=== PATIENT | female | born 1985 | race Caucasian/White ===

== ENCOUNTER 2020-03-30 10:59 | Outpatient (CLI) | payer OTHER, SELFPAY ==
--- NOTE | ~2020-03-30 | US_ITS ---
EXAMINATION: US pelvic complete w TV DATE: 03/30/2020 11:41 INDICATION: Pelvic pain for 2 years Comparison:No prior studies for comparison. TECHNIQUE: Multiple transabdominal and endovaginal sonographic images of the pelvis performed. FINDINGS: The uterus measures 8.4 x 5.2 x 5.3 cm. There is an IUD in the lower uterine segment/cervix . The endometrial complex measures 6 mm. The right ovary measures 2.6 x 2.2 x 1.8 cm and the left ovary measures 2.7 x 2.1 x 2.2 cm. There ar e small follicles in each ovary. There is no free fluid in the pelvis. There are no abnormal masses seen on either side. IMPRESSION: 1. IUD in the lower uterine segment/cervix. Reviewed, dictated and finalized at location A.
== END 2020-03-30 11:00 | disposition home or self-care (01) ==
PROVIDERS: Visit Provider Obstetrics & Gynecology
DX: R10.2 Pelvic and perineal pain (principal); Z97.5 Presence of (intrauterine) contraceptive device
CPT/HCPCS: 76830; 76856

== ENCOUNTER 2020-04-20 15:56 | Outpatient (CLI) | payer OTHER, SELFPAY ==
[2020-04-20 16:38] LABS: Hematocrit 40.2 % (37.0-47.0); Hemoglobin 13.4 g/dL (12.0-15.0); Mean Corpuscular HGB Conc 33.3 g/dl (32-36); Mean Corpuscular Volume 93.1 fl (80-100); Mean Platelet Volume 10.2 fl (7.4-10.4); Platelet Count Result 400 k/mm3 (150-375); Red Blood Count 4.32 M/mm3 (4.2-5.4); Red Cell Distribution Width 13.3 % (11.5-14.5); White Blood Count 11.9 K/mm3 (4.5-10.0)
[2020-04-20 17:22] LABS: Blood Urea Nitrogen 14 mg/dL (7-17); Carbon Dioxide 23 mmol/L (22-30); Chloride 107 mmol/L (98-107); Cholesterol 203 mg/dL (0-200); Estimated Glomerular Filt Rate > 60; Glucose 90 mg/dL (65-105); HDL Direct 33 mg/dL; Potassium 3.9 mmol/L (3.4-5.0); Sodium 139 mmol/L (137-145); Triglycerides 293 mg/dL (<150)
[2020-04-20 17:33] LABS: LDL Cholesterol Direct 135 mg/dL
[2020-04-20 17:35] LABS: Vitamin D 25 Hydroxy 22.5 ng/mL
== END 2020-04-20 15:57 | disposition home or self-care (01) ==
PROVIDERS: PCP Family Medicine; Visit Provider Physician Assistant Medical
DX: R53.82 Chronic fatigue, unspecified (principal); E55.9 Vitamin D deficiency, unspecified; Z13.220 Encounter for screening for lipoid disorders; R20.0 Anesthesia of skin; R20.2 Paresthesia of skin; Z86.39 Personal history of other endocrine, nutritional and metabolic disease
CPT/HCPCS: 36415; 80048; 80061; 82306; 82607; 84443; 85027

== ENCOUNTER 2020-12-17 12:28 | Emergency (ER) | payer OTHER, SELFPAY ==
--- NOTE | 2020-12-17 12:40 | ED.URI ---
HPI - URI/Sore Throat General Chief Complaint: Upper Respiratory Infection Stated Complaint: sore throat/congestion Time Seen by Provider: 12/17/20 12:40 Source: patient and RN notes reviewed History of Present Illness HPI Narrative: Patient is a 35-year-old female who presents the urgent care with her son with complaints of possible strep throat. Patient states that her daughter was diagnosed 2 days ago at our facility. Patient states that she has had a slight cough and congestion for the last 2 days and woke up this morning with a sore throat. Denies of any known fever, nausea, vomiting. States that she had Covid at the beginning of November. Patient has not taken anything [id number] for her symptoms. No other acute complaints. No acute distress noted. Patient aware of the plan of care. Some parts of this dictation were generated by voice recognition software and may contain typographical and/or grammatical inaccuracies. Related Data Allergies Allergy/AdvReac Type Severity Reaction Status Date / Time albuterol Allergy Unknown RASH Verified 11/22/20 15:04 erythromycin base Allergy Unknown RASH Verified 11/22/20 15:04 tramadol Allergy Unknown Nausea and Verified 11/22/20 15:04 Vomiting Review of Systems Review of Systems: Narrative: CONSTITUTIONAL: Denies fever, chills, or sweats. EYES: Denies visual changes, redness, or discharge. ENT: Reports of mild sinus congestion and sore throat CARDIOVASCULAR: Denies chest pain, palpitations, or edema. RESPIRATORY: Reports of mild nonproductive cough GASTROINTESTINAL: Denies abdominal pain, nausea, vomiting, or diarrhea. GENITOURINARY: Denies dysuria or hematuria. SKIN: Denies rash or itching. MUSCULOSKELETAL: Denies back pain, joint pain, or myalgia. NEUROLOGIC: Denies headache, numbness, or weakness. All other systems reviewed are negative, except as documented in HPI. [facility] Past Medical History Medical History (Updated 12/17/20 @ 13:20 by LUANN Hendrix) BMI 34.0-34.9,adult Fibromyalgia Lump of breast, left Tobacco abuse Family History Family History Mother Heart disease Breast cancer Father Heart disease Social History Social History Social History: Quit smoking about 6 months ago. Smoking status: Former smoker Tobacco type: cigarettes Alcohol intake: current Gender identity (if verbalized by the patient): Female Comments At the time of my signature, I reviewed and agree with the nursing past medical, surgical, social, and family history. There is no relevant family history pertinent to the patient complaint. Exam Narrative: Exam Narrative: GENERAL: This is a well-nourished, well-developed patient, in no apparent distress. HEAD: normocephalic, atraumatic. EYES: PERRL. Sclera clear/white. Vision is grossly intact. EARS: External ears normal, auditory canals clear and without drainage, TMs normal without perforation. Hearing grossly intact. Cerumen noted bilaterally without impaction NOSE: External nose normal with no obvious nasal discharge, nares without redness, no rhinorrhea. THROAT: Mucous membranes moist, moderate erythema noted posterior oropharynx with mild bilateral tonsillar edema/erythema without exudate or ulceration. Moderate postnasal drainage. NECK: Neck supple, CARDIOVASCULAR: Regular rate and rhythm without murmurs, gallops, or rubs. RESPIRATORY: Clear to auscultation. Breath sounds equal bilaterally. No wheezes, rales, or rhonchi. SKIN: warm, intact with no suspicious lesions or rash, good texture and turgor. NEURO: awake, alert, and oriented to person, place and time. There were no obvious focal neurologic abnormalities. EXTREMITIES: No clubbing, cyanosis, or edema. Course Vital Signs Vital signs: Vital Signs Temperature 98.0 F 12/17/20 12:53 Pulse Rate 98 12/17/20 12:53 Respiratory Rate 18
[2020-12-17 12:53] VITALS: BP 147/81; PULSE 98; RESP 18; TEMP 36.7; O2SAT 97
== END 2020-12-17 13:30 | disposition home or self-care (01) ==
PROVIDERS: Emergency Provider Nurse Practitioner Family; PCP Family Medicine
DX: J02.9 Acute pharyngitis, unspecified (principal); Z20.818 Contact with and (suspected) exposure to other bacterial communicable diseases; Z20.822 Contact with and (suspected) exposure to COVID-19; Z87.891 Personal history of nicotine dependence; M79.7 Fibromyalgia
CPT/HCPCS: 87081; 87426; 87880; 99213; C9803; G0463

== ENCOUNTER 2020-12-26 15:36 | Outpatient (CLI) | payer OTHER, SELFPAY ==
[2020-12-26 16:17] LABS: Basophils Absolute Auto 0.1 K/mm3 (0.0-0.1); Basophils Percent Auto 0.6 % (0.2-1.2); Eosinophils Absolute Auto 0.4 K/mm3 (0-0.3); Eosinophils Percent Auto 3.8 % (0-4.4); Hematocrit 43.1 % (37.0-47.0); Hemoglobin 14.2 g/dL (12.0-15.0); Immature Granulocyte Absolute 0.04 K/mm3 (0.00-0.031); Immature Granulocyte Percent A 0.3 % (0-0.5); Lymphocytes Absolute Auto 3.49 K/mm3 (0.9-3.2); Lymphocytes Percent Auto 30.5 % (18.3-44.2); Mean Corpuscular HGB Conc 32.9 g/dl (32-36); Mean Corpuscular Hemoglobin 30.2 pg (26-34); Mean Corpuscular Volume 91.7 fl (80-100); Mean Platelet Volume 9.7 fl (7.4-10.4); Monocytes Absolute Auto 0.8 K/mm3 (0.1-0.6); Monocytes Percent Auto 7.2 % (2.6-8.5); Neutrophils Absolute Auto 6.6 K/mm3 (1.3-6.7); Neutrophils Percent Auto 57.6 % (45.5-73.1); Platelet Count Result 492 k/mm3 (150-375); Red Cell Distribution Width 13.6 % (11.5-14.5); White Blood Count 11.5 K/mm3 (4.5-10.0)
[2020-12-26 17:42] LABS: Vitamin D 25 Hydroxy 24.3 ng/mL
== END 2020-12-26 15:37 | disposition home or self-care (01) ==
LOC: ANHLAB 15:37
PROVIDERS: PCP Family Medicine; Visit Provider Physician Assistant Medical
DX: D72.829 Elevated white blood cell count, unspecified (principal); E55.9 Vitamin D deficiency, unspecified
CPT/HCPCS: 36415; 82306; 85025

== ENCOUNTER 2021-02-16 13:17 | Outpatient (CLI) | payer OTHER, SELFPAY ==
--- NOTE | ~2021-02-16 | XR_ITS ---
EXAMINATION: XR chest 2V DATE: 02/16/2021 13:37 INDICATION: Acute bronchitis. TECHNIQUE: Frontal and lateral views of the chest were obtained. COMPARISON: Chest 2 views 07/02/2014, CT abdomen and pelvis 08/28/2018 FINDINGS: The chest demonstrates clear lungs without pneumonia, pleural effusion, or pneumothorax. Th e heart size is normal. IMPRESSION: 1. No acute cardiopulmonary disease. Reviewed, dictated and finalized at location A.
== END 2021-02-16 13:18 | disposition home or self-care (01) ==
PROVIDERS: PCP Family Medicine; Visit Provider Physician Assistant Medical
DX: J20.9 Acute bronchitis, unspecified (principal)
CPT/HCPCS: 71046

== ENCOUNTER 2021-04-10 12:44 | Outpatient (CLI) | payer OTHER, SELFPAY ==
--- NOTE | ~2021-04-10 | XR_ITS ---
XR lumbar spine 2-3V DATE: 04/10/2021 13:03 INDICATION: Low back pain, chronic, worsening over the past 3 weeks TECHNIQUE: AP, lateral, coned lateral lumbosacral views COMPARISON: 10/27/2010 lumbar spine FINDINGS: There is a transitional lumbosacral vertebra with sacralization and pseudoarthrosis on the right. Lumbar interspaces appear relatively well preserved except for mild loss of height at L4-5. No fracture or bone destruction is evident. The included lower thoracic and lumbar pedicles are intac t. The sacroiliac joints appear normal. IMPRESSION: Transitional lumbosacral vertebra with sacralization and pseudoarthrosis on the right Mild loss of interspace height at L4-5 Reviewed, dictated and finalized at location A. IMPRESSION: Transitional lumbosacral vertebra with sacralization and pseudoarth rosis on the right Mild loss of interspace height at L4-5
== END 2021-04-10 12:45 | disposition home or self-care (01) ==
PROVIDERS: PCP Family Medicine; Visit Provider Physician Assistant Medical
DX: M54.5 Low back pain (principal)
CPT/HCPCS: 72100

== ENCOUNTER 2021-04-21 18:58 | Emergency (ER) | payer OTHER, SELFPAY ==
[2021-04-21 19:10] VITALS: BP 138/68; PULSE 91; RESP 18; TEMP 36.7; O2SAT 97
--- NOTE | 2021-04-21 20:00 | PC.NURSE ---
Patient comes to intake desk and states that she is leaving the ED and will come back tomorrow. Patient left ED after triage before seeing a provider.
== END 2021-04-21 22:31 | disposition left against medical advice (07) ==
LOC: ANHED 22:17
PROVIDERS: PCP Family Medicine
DX: M54.5 Low back pain (principal)
CPT/HCPCS: 99199

== ENCOUNTER 2021-06-08 15:30 | Outpatient (RCR) | payer OTHER, SELFPAY ==
--- NOTE | 2021-05-17 16:39 | PTOPEVAL ---
PHYSICAL THERAPY EVALUATION AND PLAN OF CARE Thank you for referring Luiz France to [facility].? The patient is scheduled to be seen for therapy? 2x/week for 3 weeks. Please review, sign, date and return this plan of care NOREEN. I agree with and certify that the following plan of care is medically necessary. Referring Physician Date Attending Provider: Urvashi Murphy, PAC Evaluation Outpatient Past Medical History Psychosocial History Hx Depression Yes Diagnosis chronic low back pain Onset chronic Subjective Information reports she has a couple Query Text:As Reported By Patient/ bulging discs and a central Family herniated disc. She has used to do pain management and did physical therapy 11 years ago. She has a chronic history of low back pain that was treated well with steroid injections in the past. She has been off work for 6 weeks due to an increase onset of pain that has been more constant. States that symptoms are more on the left. See a chiropractor who treats leg length and she sees him once a week. Self Report Pain Assessment Right Spine, Lumbar Reported Pain Level 10 Pain Description Sharp,Stabbing Pain Frequency Chronic,Continuous Lowest Pain Intensity 4 Greatest Pain Intensity 1 Pain Aggravating Factors Walking,Weight Bearing/ Standing Pain Behaviors Anxious,Guarding Pain Score Pain Score 10: Self Report Interventions Used Interventions Used By Clinicians Exercise Pain Relief Interventions Used By Lying Supine Patient Cervical and Lumbar ROM Lumbar ROM Lumbar Flexion (0-90) 30 Query Text:Active in Degrees Lumbar Flexion Active Knee Query Text:Hands to: Lumbar Extension (0-40) 0 Query Text:Active in Degrees Lateral Rotation Right (0-45) 25 Query Text:Active in Degrees Lateral Rotation Left (0-45) 25 Query Text:Active in Degrees Lower Extremity Muscle Strength Testing Hip Strength Right Hip Flexion Strength 5 Normal Hip Extension Strength 2+ Poor + Hip Abduction Strength 4+ Good + Hip Medial Rotation Strength 4+ Good + Hip Lateral Rotation Strength 4+ Good + Left Hip Flexion Strength 4 Good Hip
--- NOTE | 2021-05-31 13:07 | PCPTNOTE ---
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 Will continue per POC.
--- NOTE | 2021-06-08 16:05 | PTOPEVAL ---
PHYSICAL THERAPY DISCHARGE NOTE Thank you for referring Luiz France to [facility].? At this time Luiz will be discharged from PT with recommendation for MRI referral. Please review, sign, date and return this plan of care NOREEN. I agree with and certify that the following plan of care is medically necessary. Referring Physician Date Attending Provider: Urvashi Murphy, PAC Discharge Outpatient Past Medical History Psychosocial History Hx Depression Yes Evaluation Information Problem Diagnosis chronic low back pain Onset chronic Subjective Information Reports that she is not Query Text:As Reported By Patient/ experiencing a significant Family change in symptoms from start of therapy. She is sore today , which is different than normal symptoms, but continues to have the sharp pain that is her biggest barrier. Self Report Pain Assessment Right Spine, Lumbar Reported Pain Level 6 Pain Description Radiating,Sharp,Stabbing Pain Frequency Chronic,Continuous Pain Aggravating Factors Walking,Weight Bearing/ Standing Pain Behaviors Anxious,Guarding Pain Score Pain Score 6: Self Report Interventions Used Interventions Used By Clinicians Education,Exercise,Heat Pain Relief Interventions Used By Lying Supine Patient Cervical and Lumbar ROM Lumbar ROM Lumbar Flexion (0-90) 30 Query Text:Active in Degrees Lumbar Flexion Active Knee Query Text:Hands to: Lumbar Extension (0-40) 0 Query Text:Active in Degrees Lateral Rotation Right (0-45) 25 Query Text:Active in Degrees Lateral Rotation Left (0-45) 25 Query Text:Active in Degrees Lower Extremity Muscle Strength Testing Hip Strength Right Hip Flexion Strength 5 Normal Hip Extension Strength 3 Fair Hip Abduction Strength 4+ Good + Hip Medial Rotation Strength 4+ Good + Hip Lateral Rotation Strength 4+ Good + Left Hip Flexion Strength 4+ Good + Hip Extension Strength 3+ Fair + Hip Abduction Strength 4- Good - Hip Medial Rotation Strength 4+ Good + Hip Lateral Rotation Strength 4+ Good + Muscle Length Testing Muscle Length Testing Latissmus Dorsi Muscle Length (R) Moderate Tightness,(L) Moderate Tightness Test Shortened Muscles Short (R) Iliopsoas,Short (L) Iliopsoas Posture Posture Standing Position Posture Evaluation View Posterior Head/C-Spine Posture Neutral Positi
== END 2021-06-15 15:08 | disposition home or self-care (01) ==
LOC: ANHPT 15:30
PROVIDERS: PCP Family Medicine; Visit Provider Physician Assistant Medical
DX: M54.5 Low back pain (principal); G89.29 Other chronic pain
CPT/HCPCS: 97110; 97140; 97162

== ENCOUNTER 2021-07-05 08:40 | Outpatient (CLI) | payer OTHER, SELFPAY ==
--- NOTE | ~2021-07-05 | MR_ITS ---
EXAMINATION: MR lumbar spine wo con DATE: 07/05/2021 09:49 INDICATION: Other intervertebral disc degeneration. Low back pain. Bilateral leg pain. TECHNIQUE: Magnetic resonance imaging (MRI) of the lumbar spine was performed without intravenous con trast. Sequences included sagittal T2-weighted FSE, sagittal T2-weighted FS FSE, sagittal T1-weighted FSE, and axial T2-weighted FSE. COMPARISON: Lumbar spine radiographs 04/10/2021 FINDINGS: L5 is a transitional segment. There is 6 degrees dextrocurvature of lumbar spine. There is 3 mm retrolisthesis of L4 on L5. There is mild chronic anterior wedging of T11 and T12 vertebral bodi es. There is moderately decreased disc height at L4-L5 with endplate remodeling. The distal spinal co rd signal intensity is normal. The conus medullaris is at L1. The following disc levels are specifica lly discussed: L1-L2: The disc does not extend beyond the endplate margin. There is mild bilateral facet joint osteo arthritis. There is no neural foraminal stenosis. There is no central canal stenosis. L2-L3: The disc does not extend beyond the endplate margin. There is mild bilateral facet joint osteo arthritis. There is no neural foraminal stenosis. There is no central canal stenosis. L3-L4: The disc does not extend beyond the endplate margin. There is moderate bilateral facet joint o steoarthritis. There is no neural foraminal stenosis. There is no central canal stenosis. L4-L5: There is a left central extrusion with 7 mm inferior displacement to the pedicular level. Ther e is severe bilateral facet joint osteoarthritis. There is mild right neural foraminal stenosis. Ther e is mild central canal stenosis. L5-S1: The disc does not extend beyond the endplate margin. There is moderate bilateral facet joint o steoarthritis. There is no neural foraminal stenosis. There is no central canal stenosis. IMPRESSION: 1. Moderate spondylosis at L4-L5. Reviewed, dictated and finalized at location A.
== END 2021-07-05 08:41 | disposition home or self-care (01) ==
LOC: ANHIMG 08:45
PROVIDERS: PCP Family Medicine; Visit Provider Physician Assistant Medical
DX: M51.36 Other intervertebral disc degeneration, lumbar region (principal); R20.0 Anesthesia of skin; R20.2 Paresthesia of skin; M47.896 Other spondylosis, lumbar region
CPT/HCPCS: 72148

== ENCOUNTER 2022-03-22 18:24 | Emergency (ER) | payer OTHER, MEDICAID, SELFPAY ==
[2022-03-22 18:35] VITALS: BP 144/91; PULSE 114; RESP 18; TEMP 36.8; O2SAT 96
--- NOTE | 2022-03-22 18:40 | ED.URI ---
HPI - URI/Sore Throat General Chief Complaint: Upper Respiratory Infection Stated Complaint: Sore Throat,Runny Nose,Cough Time Seen by Provider: 03/22/22 18:41 Source: patient and RN notes reviewed Mode of arrival: ambulatory Limitations: no limitations History of Present Illness HPI Narrative: 36-year-old female presents with concern for 3-week history of sore throat, runny nose, nasal congestion, cough. She reports symptoms began to improve not come back and the sore throat is worse. Reports she was taking Tylenol for symptoms without relief. She denies shortness of breath, fever, body aches, chills, sweats MD elicited complaint: cough, sore throat and nasal congestion Related Data Home Medications Medication Instructions Recorded Confirmed etonogestrel [Nexplanon] 1 implant SUBDERMAL ONCE 03/22/22 03/22/22 Allergies Allergy/AdvReac Type Severity Reaction Status Date / Time albuterol Allergy Unknown RASH Verified 10/02/21 14:54 erythromycin base Allergy Unknown RASH Verified 03/22/22 18:47 tramadol Allergy Unknown Nausea and Verified 03/22/22 18:47 Vomiting Review of Systems Review of Systems: CONSTITUTIONAL: Reports malaise. Denies chills, sweats, or fever. EYES: Denies visual changes, redness, or discharge. ENT: Reports rhinorrhea, congestion, sinus pain, and sore throat. CARDIOVASCULAR: Denies chest pain, palpitations, or edema. RESPIRATORY: Reports cough. Denies dyspnea. GASTROINTESTINAL: Denies abdominal pain, nausea, vomiting, diarrhea SKIN: Denies rash or itching. MUSCULOSKELETAL: Denies myalgia. NEUROLOGIC: Denies headache. All systems reviewed & are unremarkable except as noted in HPI and below PMFSH Past Medical History Medical History BMI 34.0-34.9,adult BMI 35.0-35.9,adult Fibromyalgia Lump of breast, left Tobacco abuse Family History Family History Mother Heart disease Breast cancer Father Heart disease Social History Social History Social History: Quit smoking about 6 months ago. Smoking packs per day: 0.50 Smoking cigarettes per day: 10.0 Years smoked: 15 Smoking pack-years: 7.50 Tobacco type: cigarettes Second hand tobacco smoke exposure: No Alcohol intake: current Substance use: never Substance use type: does not use Gender identity (if verbalized by the patient): Female Comments At time of signature, agree with nursing past medical, surgical, social and family history. There is no relevant family history pertinent to the presenting complaint Exam Narrative: GENERAL: Well-appearing, well-nourished, and in no acute distress. HEAD: Normocephalic EYES: PERRLA, conjunctivae clear ENT: Nares clear, turbinates edematous and erythematous, yellow discharge. Mucous membranes moist. TM pearly irene with dull light reflex bilaterally; no tragal tenderness. Oropharynx erythematous without lesions. Tonsils enlarged and without exudate, no drooling, no hoarseness, no trismus, uvula midline. NECK: Supple. No lymphadenopathy CHEST: Clear to auscultation, breath sounds equal. No wheezing, rhonchi, rales, or stridor. No respiratory distress, speaks in full sentences. HEART: Regular rate and rhythm. No murmur heard. SKIN: Warm, dry, no rash. NEURO: Alert and oriented x3. PSYCH: Normal mood and affect Course Course Emergency Course: Patient is aware of diagnosis, understands and agrees to treatment plan. Anticipatory guidance given. Patient agrees to follow-up as directed and is aware of reasons to seek care at the emergency department. Portions of this record may have been created with voice recognition software Level of Care: Express Care Visit Vital Signs Vital signs: Vital Signs Temperature 98.3 F 03/22/22 18:35 Pulse Rate 114 H 03/22/22 18:35 Respiratory Rate 18 03/22/22 18:35 Blood Pressure
== END 2022-03-22 18:57 | disposition home or self-care (01) ==
PROVIDERS: Emergency Provider Nurse Practitioner; PCP Family Medicine
DX: J06.9 Acute upper respiratory infection, unspecified (principal); R05.9 Cough, unspecified; F17.210 Nicotine dependence, cigarettes, uncomplicated; M79.7 Fibromyalgia
CPT/HCPCS: 87081; 87880; 99213; G0463

== ENCOUNTER 2022-12-03 17:52 | Emergency (ER) | payer OTHER, MEDICAID, SELFPAY ==
[2022-12-03 18:35] VITALS: BP 137/85; PULSE 93; RESP 16; TEMP 36.4; O2SAT 99
--- NOTE | 2022-12-03 18:56 | ED.URI ---
HPI - URI/Sore Throat General Chief Complaint: Upper Respiratory Infection Stated Complaint: sorethroat,cough Time Seen by Provider: 12/03/22 18:50 Source: patient Mode of arrival: ambulatory Limitations: no limitations History of Present Illness HPI Narrative: Luiz is a 37-year-old female patient presenting to the clinic today with complaints of sore throat, cough, nasal congestion, sinus pressure, fatigue, and urinary frequency and dysuria. She reports the urinary symptoms began today however she has been feeling sick since before Mate[place]. MD elicited complaint: sore throat and nasal congestion Related Data Home Medications Medication Instructions Recorded Confirmed etonogestrel 68 mg subdermal 1 implant subdermal ONCE 03/22/22 12/03/22 implant (Nexplanon) Allergies Allergy/AdvReac Type Severity Reaction Status Date / Time erythromycin base Allergy Unknown RASH Verified 12/03/22 18:40 tramadol Allergy Unknown Nausea and Verified 12/03/22 18:40 Vomiting Review of Systems Review of Systems: Pertinent positives per HPI. Patient denies any fever, chills, rash, headache, visual changes, dizziness, cough, shortness of breath, chest pain, palpitations, nausea, vomiting, diarrhea, constipation, abdominal pain, or any urinary issues. [facility] Past Medical History Medical History BMI 34.0-34.9,adult BMI 35.0-35.9,adult BMI 36.0-36.9,adult Fibromyalgia Lump of breast, left Tobacco abuse Family History Family History Mother Heart disease Breast cancer Father Heart disease Social History Social History Social History: Quit smoking about 6 months ago. Smoking packs per day: 0.50 Smoking cigarettes per day: 10.0 Years smoked: 15 Smoking pack-years: 7.50 Smoking status: Current every day smoker Tobacco type: cigarettes Second hand tobacco smoke exposure: No Alcohol intake: current Substance use: never Substance use type: does not use Gender identity (if verbalized by the patient): Female Comments At the time of my signature, I reviewed and agree with the nursing past medical, surgical, social, and family history. There is no relevant family history pertinent to the patient complaint. Exam Narrative: General: Well-developed, obese, in no apparent distress Head: Normocephalic, atraumatic Eyes: Pupils equally round and reactive to light bilaterally, EOM intact, sclera and conjunctive clear, no discharge, lids normal Ears: TMs intact and clear, ear canals clear, no drainage, grossly hearing normal. Nose: Nares patent, green neck discharge, severe inflammation, maxillary and frontal sinus tenderness. Mouth: Oral pharynx without lesions or masses, good dentition, MMM. Neck: Supple, trachea midline, no enlargement of anterior or posterior cervical nodes, no thyroid masses or goiter palpable. Cardio: Regular rate and rhythm, s1 and s2 normal, no murmur appreciated. Resp: Clear to auscultation bilaterally, no rhonchi, rales, wheezing or rubs Abdomen: Soft, pliable, mild tender to palpation over the bladder, no organomegaly, bowel sounds present all 4 quadrants, no CVAT tender Course Course Emergency Course: Portions of this record may have been created with voice recognition software. Level of Care: Express Care Visit Vital Signs Vital signs: Vital Signs Temperature 36.4 C 12/03/22 18:35 Pulse Rate 93 12/03/22 18:35 Respiratory Rate 16 12/03/22 18:35 Blood Pressure 137/85 12/03/22 18:35 Pulse Oximetry 99 12/03/22 18:35 Oxygen Delivery Room Air 12/03/22 18:35 Temperature 36.4 C 12/03/22 18:35 Pulse Rate 93 12/03/22 18:35 Respiratory Rate 16 12/03/22 18:35 Blood Pressure 137/85 12/03/22 18:35 Pulse Oximetry 99 12/03/22 18:35 Oxygen Delivery Room A
== END 2022-12-03 19:19 | disposition home or self-care (01) ==
PROVIDERS: Emergency Provider Nurse Practitioner Family; PCP Family Medicine
DX: J01.90 Acute sinusitis, unspecified (principal); R30.0 Dysuria; Z87.891 Personal history of nicotine dependence
CPT/HCPCS: 81003; 87086; 99213; G0463

== ENCOUNTER 2025-10-07 18:23 | Emergency (ER) | payer OTHER, SELFPAY ==
--- OUTSIDE RECORDS SUMMARY | 2020-05-31 18:00 | XMS_ITS | Continuity of Care Document ---
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 [address] [place] [address], [address], [address] [place] [address]. tel:[phone] Referring Provider: Sanchez Phillips, [address] [place], [address]. tel:[phone] Family History Family Member Type Diagnosis Age At Onset No Information Payers Payer name Insurance type Covered democrat ID Authoriza tion(s) Blue Cross Blue Shield CHOICE PPO BL [id number] Social History Type Description Quantity Date Captured Comments Sex Female Smoking Status No Information Chief Complaint And Reason For Visit No Information Reason For Referral Reason For Referral No Information History Of Present Illness Encounter Date Complaint History Of Prese nt Illness No Information Functional Status Date Functional Assessmen t No Information Instructions Date Instruction Additional Infor mation No Information Assessments Type Assessment Date No Information Patient Care Teams Name Effective Dates (start - stop) Status Members No Information
--- OUTSIDE RECORDS SUMMARY | 2020-05-31 18:00 | XMS_ITS | Continuity of Care Document ---
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 [address] [place] [address], [address], [address] [place] [address]. tel:[phone] Referring Provider: Sanchez Phillips, [address] [place], [address]. tel:[phone] Family History Family Member Type Diagnosis Age At Onset No Information Payers Payer name Insurance type Covered alliance party ID Authoriza tion(s) Blue Cross Blue Shield CHOICE PPO BL [id number] Social History Type Description Quantity Date Captured [...]
[2025-10-07 18:31] VITALS: BP 145/106; PULSE 95; RESP 18; TEMP 36.6; O2SAT 98
--- NOTE | 2025-10-07 18:31 | ED_ITS ---
HPI - URI/Sore Throat General Chief Complaint: Upper Respiratory Infection Stated Complaint: Sore throat Source: patient, RN notes reviewed and old records reviewed Mode of arrival: ambulatory Limitations: no limitations History of Present Illness HPI Narrative: 40-year-old female presents to the [facility] with sore throat and headache that started today. Had taken vitamin-D. No other treatment prior to arrival. Denies any fevers. Onset (ago): hour(s) Related Data Home Medications ?Medication ?Instructions ?Recorded ?Confirmed ?Last Taken ?Type etonogestrel 68 mg subdermal 1 implant subdermal ONCE 03/22/22 09/06/25 Unknown History implant (Nexplanon) Allergies Allergy/AdvReac Type Severity Reaction Status Date / Time erythromycin base Allergy Unknown RASH Verified 10/07/25 18:42 tramadol Allergy Unknown Nausea and Verified 10/07/25 18:42 Vomiting Review of Systems Review of Systems: All systems reviewed & are unremarkable except as noted in HPI and below Constitutional: Constitutional: Reports as per HPI and Reports headache(s) ENT: Reports as per HPI and Reports sore throat Cardiovascular: Cardiovascular: Reports no additional cardiovascular complaints, Denies chest pain and Denies dyspnea Respiratory: Respiratory: Reports no additional respiratory complaints, Denies chest congestion, Denies cough and Denies dyspnea Musculoskeletal: Musculoskeletal: Reports no additional musculoskeletal complaints Integumentary/Breasts: Skin/Breast: Reports system reviewed and no additional complaints, except as docu PMFSH Past Medical History Medical History Hyperlipidemia Tonsillar hypertrophy Tobacco abuse BMI 34.0-34.9,adult Fibromyalgia Lump of breast, left Surgical History Surgical History Hx of lumpectomy Family History Family History Mother Hyperlipidemia Diabetes mellitus Father Heart disease Acute myocardial infarction Sibling Hyperlipidemia Grandparent Breast cancer Heart disease Social History Social History Smoking packs per day: 0.25 Smoking cigarettes per day: 5.0 Years smoked: 15 Smoking pack-years: 3.75 Second hand tobacco smoke exposure: No Alcohol intake: current Substance use: never Substance use type: does not use Do You Feel Safe in your Home?: Yes Lack of Transportation: No Lack of Food: Never True Current Housing: I Have Housing Concerned About Future Housing: No Difficulty Paying Gas/Electric Bills: No Difficulty Paying for Meds: No Currently Unemployed: No Education: Associate Degree Living arrangements: with family Occupation/Education: occupation 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 There is no relevant family history pertinent to the patient complaint. Exam Const: General: cooperative, healthy appearing, comfortable, no acute distress, well developed, alert and well nourished Nutritional Appearance: well nourished Orientation/consciousness: patient oriented x3 Limitations: no limitations HENMT: Head: normal to inspection Ears: hearing grossly normal bilaterally, external ears normal, TM's normal bilaterally, EAC's normal, mastoids normal and no periauricular adenopathy Mouth: Yes Normal oral and palatal mucosa present, Yes lip normal, Yes tongue normal and Yes moist mucous membranes Th roat: posterior oropharynx normal, tonsils normal, uvula midline, postnasal drainage and no uvular edema Eyes: General: appearance normal, both eyes and all related structures Alignment and Position: alignment normal Neck: Neck: normal visual inspection, full ROM, no lymphadenopathy and no meningeal signs Chest: Chest palpation & inspection: normal inspection of the chest Resp: Effort & Inspection: normal respiratory effort and able to speak in complete sentences Auscultation: clear to auscultation bilaterally, no crackles, no rales, no rhonchi and no wheezes Cardio: Rate: regular rate Skin: General skin exam: normal color and no rashes or lesions noted Neuro: General: patient oriented x3, gait normal, moves all extremities and no meningeal signs Cognition (Neuro): normal cognition Speech: normal speech Gait exam (Neuro): Normal gait present Extrem: General: normal to inspection, full ROM, capillary refill normal and normal gait Psych: Appearance: grossly normal and well kempt Mental Status: mental status grossly normal Speech and movement: Normal speech and movement present and Clear speech present Affect: normal affect Attitude: cooperative Course Course Level of Care: Express Care Visit Vital Signs Vital signs: Vital Signs Temperature 97.9 F 10/07/25 18:31 Pulse Rate 95 10/07/25 18:31 Respiratory Rate 18 10/07/25 18:31 Blood Pressure 145/106 H 10/07/25 18:31 Pulse Oximetry 98 10/07/25 18:31 Oxygen Delivery Room Air 10/07/25 18:31 Temperature 97.9 F 10/07/25 18:31 Pulse Rate 95 10/07/25 18:31 Respiratory Rate 18 10/07/25 18:31 Blood Pressure 145/106 H 10/07/25 18:31 Pulse Oximetry 98 10/07/25 18:31 Oxygen Delivery Room Air 10/07/25 18:31 Reviewed MDM - URI/Sore Throat MDM Narrative Medical decision making narrative: Patient sitting in exam room. Patient is nontoxic, vitals stable except blood pressure mildly elevated, encourage patient to follow-up with primary care provider for evaluation. Patient presents with URI symptoms that started earlier today. No treatment prior to arrival. Flu, COVID, strep negative, will culture Patient appropriate for outpatient treatment with close follow-up. Discharge instructions reviewed with patient, as well as provided in writing per nursing staff. The instructions also include specific and strict return/GO TO THE ER as well as f/u information. All questions have been answered, and the patient deny any further questions with discharge and discharge plan. Some parts of this dictation were generated by voice recognition software and may contain typographical and/or grammatical inaccuracies. Differential Diagnosis Differential diagnosis: Likely upper respiratory infection, otitis media, sinusitis, viral infection, bronchitis, influenza and pharyngitis Lab Data Labs: Lab Results 10/07/25 10/07/25 Range/Units 18:46 18:54 POC Influenza A Ag Negative (Negative) POC Influenza B Ag Negative (Negative) POC SARS CoV-2 Ag Negative (Negative) POC Grp A Strep Screen Negative (Negative) Reviewed Critical Care Time Critical Care Time Critical Care Time: No Discharge Plan Discharge Clinical Impression: Inflammation of left ear canal, Elevated blood pressure reading Upper respiratory infection Qualifiers: URI type: unspecified viral URI Qualified Code(s): J06.9 - Acute upper res piratory infection, unspecified Patient Disposition: Home Condition: Stable Instructions: Antibiotic Form, Upper Respiratory Infection (ED) Additional Instructions: Today your blood pressure was 145/106. Please follow-up primary care provider to have this rechecked within 2 weeks. Today there showed to be an abrasion and inflammation of the left ear canal. Ear drops have been prescribed. Please follow-up with primary care provider to have this rechecked Your rapid strep swab was negative today at [facility]. A throat culture will be sent to the laboratory for further testing. If the test is positive, you will receive a phone call within 48 hours and an appropriate antibiotic will be initiated at that time. Your rapid COVID test were negative Your rapid flu test was negative Your symptoms are likely due to a viral illness, which is not treated with antibiotics. Typically viral infections last 7-10 days, can linger for couple of weeks. It is very important to treat your symptoms. Drink plenty of water, Gatorade, Pedialyte, ice pops or Jell-O. -Alternate Tylenol and Motrin per package directions for fever or pain. You can alternate every 4 hours -Antihistamine medication such as Zyrtec/Claritin/Sharyn during the day can help improve symptoms. -doing daily nasal irrigations can help relieve pressure your sinuses. Things like a Neti pot -Use Flonase twice a day for 5 days then daily to help reduce the inflammation and dry up your sinuses. -You can also use Mucinex. Be sure to drink plenty of water with this medication at least 8 ounces with every dose and it is important to drink 8 to 10 glasses of water per day. Water is a natural decongestant -Eat and drink things that are easy to swallow, like tea or soup, or popsicles. -Oral rinses such as: Salt water gargles and/or may use topical anesthetic (eg. Chloraseptic spray) or lozenges to relieve dryness or throat pain). -Frequent hand washing or hand clip coater is one of the best ways to prevent spread of infection. -Using a vaporizer or humidifier at night will also help thin secretions and help with coughing up phlegm. -Follow up with primary care provider in 7-10 days if condition is not improving - For new or worsening symptoms go directly to the nearest ER Patient Language: Greenlandic Prescriptions: New [id number]-xmudusttw-CA 3.5-10,000-1 mg/mL-unit/mL-% drops,suspension 4 drp LEFT EAR Q6H Qty: 10 0RF No Action Nexplanon 68 mg Implant 1 implant SUBDERMAL ONCE Nurtec ODT 75 mg tablet,disintegrating 75 mg PO ONCE PRN (Reason: migraine headache) Qty: 8 0RF Rx Instructions: as a single dose. May repeat the dose 1 time after 24 hours if symptoms persist Zepbound 7.5 mg/0.5 mL solution 7.5 mg subcut WEEKLY Qty: 2 3RF Rx Instructions: [facility] [id number] varenicline tartrate 0.5 mg (11)- 1 mg (42) tablets,dose pack See Rx Instructions PO PER PKG DIR Qty: 53 0RF Rx Instructions: PO PER PKG DIR cholecalciferol (vitamin D3) 1,250 mcg (50,000 unit) capsule 1,250 mcg PO WEEKLY Qty: 8 0RF Follow-up/Referrals: Joe Chin MD [Primary Care Provider, Family Practice] Clinical Impression: Elevated blood pressure reading; Upper respiratory infection; Inflammation of left ear canal Stand Alone Forms: Work/School Release IP Time of Disposition: 18:59
[2025-10-07 18:47] LABS: EDSTREPNEGPOS1 Negative (Negative)
[2025-10-07 18:56] LABS: EDCOVIDSCREEN Negative (Negative); EDINFLUASCREEN Negative (Negative); EDINFLUBSCREEN Negative (Negative)
--- OUTSIDE RECORDS SUMMARY | 2025-10-07 21:14 | XMS_ITS | Clinical Summary ---
Author Organization 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 Family History Relation Name Status Comments Brother Alive Daughter Alive Father Mother Alive Son Alive Social History Tobacco Use Types Packs/Day Years Used Date Smoking Tobacco: Every Day Cigarettes Smokeless Tobacco: Never Alcohol Use Standard Drinks/Week Comments Yes 0 (1 standard drink = 0.6 oz pur e alcohol) occasional Comments Unknown Sex and Gender Information Value Date Recorded Sex Assigned at Not on file Legal Sex Female 12:50 PM CDT Gender Identity Not on file Sexual Orientation Not on file Last Filed Vital Signs Vital Sign Reading Time Taken Comments Blood Pressure 139/87 08/24/2021 2:30 PM CDT Pulse 98 08/24/2021 2:30 PM CDT Temperature 36.7 C (98 F) 08/24/2021 2:30 PM CDT Respiratory Rate - - Oxygen Saturation 98% 08/24/2021 2:30 PM CDT Inhaled Oxygen Concentration - - Weight 100.5 kg (221 lb 9.6 oz) 08/24/2021 2:30 PM CDT Height 170.2 cm (5' 7) 08/24/2021 2:30 PM CDT Body Mass Index 34.71 08/24/2021 2:30 PM CDT Plan of Treatment Health Maintenance Due Date Last Done Comments DTAP/TDAP/TD VACCINES (1 - Tdap) 2004 HEPATITIS B VACCINES (1 of 3 - 19+ 3-dose series) 06/02 HPV/Cotest (21-29) 2006 HPV VACCINES (1 - 3-dose SCDM series) 2012 CERVICAL CANCER SCREENING 2015 HPV/Cotest (30-65) 2015 PAP SMEAR 2015 BREAST CANCER SCREENING 2025 INFLUENZA VACCINE (#1) 2025 Insurance MEDICAID Care Teams Bank Note Designer Relationship Specialty Start Date End Date Joe Chin MD [address] [place] [address] PCP - General Family Practice 03/17/21
--- OUTSIDE RECORDS SUMMARY | 2025-10-07 21:14 | XMS_ITS | Clinical Summary ---
Author Organization [facility] Address [address] [place] [address] Care Team Providers Care Hospitality Coordinator Name Role Phone Joe Chin MD Primary Care Provider [phone] Social History Tobacco Use Types Packs/Day Years Used Date Smoking Tobacco: Never Assessed Comments Unknown Sex and Gender Information Value Date Recorded Sex Assigned at Not on file Legal Sex Female 9:44 AM CDT Gender Identity Not on file Sexual Orientation Not on file Plan of Treatment Health Maintenance Due Date Last Done Comments Cervical Cancer Screening Pa p Smear (Age 30 to 64) Every 3 Years 1985 Annual Physical 1988 Hepatitis C 2003 DTaP, Tdap and Td Vaccines ( 1 - Tdap) 2004 Hepatitis B Vaccines (1 of 3 - 19+ 3-dose series) 2004 HPV Vaccines (1 - 3-dose SCD M series) 2012 Cervical Cancer Screening Pa p with HPV Testing (Age 30 to 64) Every 5 Years 2015 Cervical Cancer Screening with HPV 2015 Mammogram Screening 2025 COVID-19 Vaccine ( - 2024-2 6 season) 2025 Influenza Adult (#1) 2025 Hepatitis A Vaccines Aged Out No long er eligible based on patient's age to complete this topic Meningococcal B Vaccine Aged Out No l onger eligible based on patient's age to complete this topic Meningococcal Vaccine Aged Out No sadia tabby eligible based on patient's age to complete this topic Pneumococcal Vaccine: Pediat rics (0 to 5 Years) and At-Risk Patients (6 to 49 Years) Aged Out No longer eligible b ased on patient's age to complete this topic RSV Immunizations Under 20 Months Aged Out No longer eligible based on patient's age to complete this topic Insurance [facility] Care Teams Hospitality Coordinator Relationship Specialty Start Date End Date Joe Chin MD [address] [place] [id number] PCP - General FAMILY PRACTICE 08/01/23
--- OUTSIDE RECORDS SUMMARY | 2025-10-07 21:14 | XMS_ITS | Clinical Summary ---
Author Organization [facility] Address [address] [place] [address] Care Team Providers Care Sql Etl Developer Name Role Phone Joe Chin MD Primary Care Provider [phone] Allergies No known active allergies Medications varenicline tartrate (CHANTIX NANDO) 0.5 mg (11)- 1 mg (42) tablet FOLLOW PACKAGE DIRECTIONS 4 Active Active Problems No known active problems Surgical History Surgery Date Site/Laterality Comments LASIK BREAST LUMPECTOMY 12/02/2001 - 12/01/2002 Family History Medical History Relation Name Comments Heart failure Father Relation Name Status Comments Father Social History Tobacco Use Types Packs/Day Years Used Date Smoking Tobacco: Every Day Cigarettes Tobacco Cessation:Ready to Q uit: Not Asked; Counseling Given: Not Answered Comments Unknown Sex and Gender Information Value Date Recorded Sex Assigned at Not on file Legal Sex Female 9:45 PM COMBINING MACHINE OPERATOR Gender Identity Not on file Sexual Orientation Not on file Last Filed Vital Signs Vital Sign Reading Time Taken Comments Blood Pressure 147/116 11/11/2024 3:08 PM COMBINING MACHINE OPERATOR Pulse 97 11/11/2024 3:08 PM COMBINING MACHINE OPERATOR Temperature - - Respiratory Rate - - Oxygen Saturation - - Inhaled Oxygen Concentration - - Weight 104.2 kg (229 lb 12.8 oz) 11/11/2024 3:08 PM COMBINING MACHINE OPERATOR Height 167.6 cm (5' 6) 11/11/2024 3:08 PM COMBINING MACHINE OPERATOR Body Mass Index 37.09 11/11/2024 3:08 PM COMBINING MACHINE OPERATOR Plan of Treatment Health Maintenance Due Date Last Done Comments Breast Cancer Screening-Mammogram 1985 Cervical Cancer Screening 1985 Depression Screening 1985 Hepatitis C Screening 1985 DTaP/Tdap/Td Vaccine (1 - Tdap) 1996 Varicella Vaccines (1 of 2 - 13+ 2-dose series) 1997 Hepatitis B Screening 2003 Regular Well Visit/Exam 18-64 2003 Pneumococcal vaccine <65 (1 of 2 - PCV) 2004 HPV Vaccines (1 - 3-dose SCDM series) 2012 Influenza Vaccine (#1) 2025 Insurance [facility] HMO/PPO Address: [address] [address] Care Teams Sql Etl Developer Relationship Specialty Start Date End Date Joe Chin MD [address] [place] [address] PCP - General Family Medicine 10/14/24
== END 2025-10-07 19:04 | disposition home or self-care (01) ==
PROVIDERS: Emergency Provider Nurse Practitioner; PCP Family Medicine
DX: H66.92 Otitis media, unspecified, left ear (principal); J06.9 Acute upper respiratory infection, unspecified; R03.0 Elevated blood-pressure reading, without diagnosis of hypertension; E78.5 Hyperlipidemia, unspecified; F17.210 Nicotine dependence, cigarettes, uncomplicated; Z20.822 Contact with and (suspected) exposure to COVID-19
CPT/HCPCS: 87081; 87426; 87804; 87880; 99213; G0463

== ENCOUNTER 2025-10-29 01:00 | Observation (INO) | payer OTHER, SELFPAY ==
[2025-10-29] VITALS (24 sets, daily range): BP systolic 87–151; BP diastolic 59–104; PULSE 72–105; RESP 11–20; TEMP 36.3–37.2; O2SAT 93–100; BMI 31.5
--- NOTE | ~2025-10-29 | XR_ITS ---
Examination: XR chest 2V Clinical History: cp Comparison: 02/16/2021 Technique: PA and Lateral Findings: Cardiomediastinal silhouette normal size and configuration. Lungs clear. No acute bony abnormality. IMPRESSION: 1. No acute cardiopulmonary findings. Reviewed, dictated and finalized at location R. ALS COLLECTION TECHNICIAN
--- NOTE | ~2025-10-29 | CT_ITS ---
CT abdomen pelvis w con Clinical History: Abdominal pain suspect cholecystitis . Comparison: CT abdomen pelvis 08/28/2018 Technique: Axial images lung bases to symphysis pubis IV contrast information not listed in PACS Coronal, sagittal reformats CT images acquired with automatic exposure control for dose reduction DLP: 969 mGy-cm Findings: Lung bases: Clear. Visualized heart and pericardium: Unremarkable. Liver: Enlarged. Steatosis. Gallbladder: Mild wall thickening. Spleen: Unremarkable. Pancreas: Unremarkable. Adrenal glands: Unremarkable. Kidneys: Right kidney- No hydronephrosis. No renal stones. Left kidney- No hydronephrosis. No renal stones. Distal esophagus/stomach: Unremarkable. Small bowel loops: Normal caliber and wall thickness. Colon: Normal caliber and wall thickness. Normal RLQ appendix. Nodes: No enlarged nodes. Peritoneum: No ascites. No free air. Urinary bladder: Unremarkable. Uterus: Unremarkable. Adnexa: No masses. Bones: No acute bony abnormality. Soft tissues: Unremarkable. Aorta: No aneurysm or dissection. IVC: Unremarkable. Main portal vein/SMV/splenic vein: Patent. IMPRESSION: 1. Mild nonspecific gallbladder wall thickening. Consider ultrasound and/or HIDA scan if indicated. 2. Otherwise no acute abnormality. Reviewed, dictated and finalized at location R. N HOUSE MANAGER IMPRESSION: 1. Mild nonspecific gallbladder wall thickening. Consider ultrasound and/or HI DA scan if indicated. 2. Otherwise no acute abnormality.
--- NOTE | ~2025-10-29 | US_ITS ---
US abdomen limited INDICATION: Gallbladder wall thickening seen on CT PROCEDURE: Realtime right upper abdominal ultrasound. COMPARISON: CT dated 10/29/2025 FINDINGS: The pancreas is normal without focal mass or pancreatic ductal dilation. Liver echotexture is normal without focal mass or intrahepatic biliary dilatation. There is normal directional flow in the portal vein. Gallbladder wall is thickened measuring approximately 3 mm. There are gallstones. No pericholecystic fluid. Common bile duct measures 5 mm. No sonographic Dumont's sign. IMPRESSION: 1: Cholelithiasis with gallbladder wall thickening. Consider cholecystitis in the appropriate clinical setting. Reviewed, dictated and finalized at location I. TING MATERIAL CARRIER IMPRESSION: 1: Cholelithiasis with gallbladder wall thickening. Consider cholecystitis in t he appropriate clinical setting.
--- NOTE | 2025-10-29 01:09 | ECG_ITS ---
Test Date: 2025-10-29 01:13:50 Measurements Intervals [place] Rate: 100 P: 10 CT: 112 QRS: 61 QRSD: 83 T: 60 QT: 366 QTc: 472 Interpretive Statements SINUS TACHYCARDIA NORMAL ELECTROCARDIOGRAM No previous ECG available for comparison Electronically Signed On 10-29-2025 13:17:08 PRESS OPERATOR HELPER by Keon Perea M.D.
[2025-10-29 01:19] LABS: Hematocrit 44.8 % (37.0-47.0); Hemoglobin 15.1 g/dL (12.0-15.0); Mean Corpuscular HGB Conc 33.7 g/dl (32-36); Mean Corpuscular Hemoglobin 30.3 pg (26-34); Mean Corpuscular Volume 89.8 fl (80-100); Platelet Count Result 461 k/mm3 (150-375); Red Blood Count 4.99 M/mm3 (4.2-5.4); White Blood Count 17.6 K/mm3 (4.5-10.0)
--- OUTSIDE RECORDS SUMMARY | 2025-10-29 01:21 | XMS_ITS | Clinical Summary ---
Author Organization [facility] Address [address] [place] [address] Care Team Providers Care Building Inspection Engineer Name Role Phone Joe Chin MD Primary Care Provider [phone] Allergies No known active allergies Medications buPROPion [...] VACCINE (#1) 2025 Insurance MEDICAID Care Teams Building Inspection Engineer Relationship Specialty Start Date End Date Joe Chin MD [address] [place] [address] PCP - General Family Practice 03/17/21
--- OUTSIDE RECORDS SUMMARY | 2025-10-29 01:21 | XMS_ITS | Clinical Summary ---
Author Organization [facility] Address [address] [place] [address] Care Team Providers Care Master Chef Name Role Phone Joe Chin MD Primary Care Provider [phone] Social History Tobacco Use Types Packs/Day Years [...] patient's age to complete this topic Insurance [facility] Care Teams Master Chef Relationship Specialty Start Date End Date Joe Chin MD [address] [place] [address] PCP - General FAMILY PRACTICE 08/01/23
--- NOTE | 2025-10-29 01:24 | ED.ABDPAIN ---
HPI - Abdominal Pain General Chief Complaint: Abdominal Pain <Ralph Pandey MD - Last Filed: 10/29/25 20:35> Stated Complaint: chest pain <Ralhp Pandey MD - Last Filed: 10/29/25 20:35> Time Seen by Provider: 10/29/25 01:13 <Ralph Pandey MD - Last Filed: 10/29/25 20:35> History of Present Illness HPI narrative: 40-year-old female with history of fibromyalgia presenting to the emergency department today with epigastric chest pain going towards her back between her shoulder blades. States that occurred in the middle night about an hour ago. She states she ate dinner around 6 or 7 and then went to bed and having pain that kept her from sleeping. Some associated nausea but no vomiting. Pain has been constant since then. No traumatic injuries. States she had a similar episode around the exact same time yesterday after a meal. No history of gallbladder disease to her knowledge. Denies any history of gastric surgery but she is on a semaglutide injectable on a stable dose for several months. No history of ulcers or any abdominal surgeries. Was otherwise in her normal state of health. She states last week she did have a 24 hour viral illness with some diarrhea and vomiting that resolved spontaneously and feels like this is not related. No further vomiting or diarrhea. No pelvic pain or urinary complaints. No difficulty breathing, neck pain, or diaphoresis. <Ralph Pandey MD - Last Filed: 10/29/25 20:35> Related Data Home Medications: Home Medications ?Medication ?Instructions ?Recorded ?Confirmed ?Last Taken ?Type etonogestrel 68 mg subdermal 1 implant subdermal ONCE 03/22/22 10/29/25 Unknown History implant (Nexplanon) <Ralph Pandey MD - Last Filed: 10/29/25 20:35> Allergies/Adverse Reactions: Allergies Allergy/AdvReac Type Severity Reaction Status Date / Time erythromycin base Allergy Unknown RASH Verified 10/29/25 10:01 tramadol Allergy Unknown Nausea and Verified 10/29/25 10:01 Vomiting <Ralph Pandey MD - Last Filed: 10/29/25 20:35> Review of Systems Review of Systems: As reviewed above in HPI <Ralph Pandey MD - Last Filed: 10/29/25 20:35> [facility] Past Medical History Medical History: Medical History Hyperlipidemia Tonsillar hypertrophy Tobacco abuse BMI 34.0-34.9,adult Fibromyalgia Lump of breast, left <Ralph Pandey MD - Last Filed: 10/29/25 20:35> Surgical History Surgical History: Surgical History Hx of lumpectomy <Ralph Pandey MD - Last Filed: 10/29/25 20:35> Family History Family History: Family History Mother Hyperlipidemia Diabetes mellitus Father Heart disease Acute myocardial infarction Sibling Hyperlipidemia Grandparent Breast cancer Heart disease <Ralph Pandey MD - Last Filed: 10/29/25 20:35> Social History Social History: Social History (Reviewed 10/29/25 @ :25 by Ralph Pandey MD) Smoking packs per day: 0.25 Smoking cigarettes per day: 5.0 Years smoked: 15 Smoking pack-years: 3.75 Smoking status: Current every day smoker Second hand tobacco smoke exposure: No Alcohol intake: current Substance use: never Substance use type: does not use Lack of Transportation: No Lack of Food: Never True Current Housing: I Have Housing Concerned About Future Housing: No Difficulty Paying Gas/Electric Bills: No Difficulty Paying for Meds: No Currently Unemployed: No Education: Associate Degree Difficulty w/ Childcare or Family Care: No Living arrangements: with family Occupation/Education: occupation 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 Awake and answering all questions appropriately. HEAD: Normocephalic and atraumatic EYES: [PERRLA and EOMI.] ENT: Nares clear, no rhinorrhea or epistaxis. Mucous membranes moist. NECK: Supple. CHEST: [Clear to auscultation. No respiratory distress.] HEART: [Regular rate and rhythm]. No murmur heard. [Normal peripheral pulses.] ABDOMEN: Soft, nondistended, tender in the right upper quadrant with positive Dumont sign. No rebound guarding or peritonitis signs. No abdominal bruising but she does have some striations from obesity. EXTREMITIES: Normal range of motion. [No edema.] SKIN: Warm, dry, no rash. NEURO: [No focal deficits]. Alert and oriented [x3.] PSYCH: [Normal mood and affect.] <Ralph Pandey MD - Last Filed: 10/29/25 20:35> Course Course Emergency Course: ZYCH: Patient signed out pending CT abdomen pelvis. CT abdomen pelvis showed signs of cholecystitis. Right upper quadrant ultrasound showed a thickened gallbladder wall. Patient has a white count of 17. Minor elevations in her liver enzymes. Sensation consistent with acute cholecystitis. She will be started on antibiotics. General surgery consult and patient will be admitted for further evaluation. <Sanchez Clay MD - Last Filed: 10/29/25 08:07> Vital Signs Vital signs: Vital Signs Temperature 37.2 C 10/29/25 01:03 Pulse Rate 100 10/29/25 01:03 Respiratory Rate 17 10/29/25 01:03 Blood Pressure 151/104 H 10/29/25 01:03 Pulse Oximetry 100 10/29/25 01:03 Oxygen Delivery Room Air 10/29/25 01:03 Temperature 36.7 C 10/29/25 19:28 Pulse Rate 72 10/29/25 19:28 Respiratory Rate 18 10/29/25 19:28 Blood Pressure 116/82 10/29/25 19:28 Pulse Oximetry 99 10/29/25 19:28 Oxygen Delivery Room Air 10/29/25 12:42 <Ralph Pandey MD - Last Filed: 10/29/25 20:35> Vital Signs Temperature 37.2 C 10/29/25 01:03 Pulse Rate 100 10/29/25 01:03 Respiratory Rate 17 10/29/25 01:03 Blood Pressure 151/104 H 10/29/25 01:03 Pulse Oximetry 100 10/29/25 01:03 Oxygen Delivery Room Air 10/29/25 01:03 Temperature 36.7 C 10/29/25 19:28 Pulse Rate 72 10/29/25 19:28 Respiratory Rate 18 10/29/25 19:28 Blood Pressure 116/82 10/29/25 19:28 Pulse Oximetry 99 10/29/25 19:28 Oxygen Delivery Room Air 10/29/25 12:42 <Sanchez Clay MD - Last Filed: 10/29/25 08:07> MDM - Abdominal Pain MDM Narrative Medical decision making narrative: 40-year-old female with history of fibromyalgia presenting to the emergency department today with epigastric chest pain going towards her back between her shoulder blades. States that occurred in the middle night about an hour ago. She states she ate dinner around 6 or 7 and then went to bed and having pain that kept her from sleeping. Some associated nausea but no vomiting. Pain has been constant since then. No traumatic injuries. States she had a similar episode around the exact same time yesterday after a meal. No history of gallbladder disease to her knowledge. Denies any history of gastric surgery but she is on a semaglutide injectable on a stable dose for several months. No history of ulcers or any abdominal surgeries. Was otherwise in her normal state of health. She states last week she did have a 24 hour viral illness with some diarrhea and vomiting that resolved spontaneously and feels like this is not related. No further vomiting or diarrhea. No pelvic pain or urinary complaints. No difficulty breathing, neck pain, or diaphoresis. Soft, nondistended, tender in the right upper quadrant with positive Dumont sign. No rebound guarding or peritonitis signs. No abdominal bruising but she does have some striations from obesity. Patient is hemodynamically stable. No fever or hypoxemia. Blood pressure 151/104 but chronic. Pulse 100. Given her age and risk factors suspect cholelithiasis, cholecystitis, most likely renal colic or intra-abdominal abscess/gastroenteritis. Low suspicion ulcer. Patient was given Dilaudid and morphine as well as fluids and Zofran. Laboratory studies sent. Patient felt better on re-evaluation, ambulating without any difficulty. Patient does have an elevated white count of 17 but also hemoconcentration with elevated platelets and hemoglobin. Possible dehydration component. She was given fluid resuscitation. Remains hemodynamically stable. Electrolytes are unremarkable. Normal creatinine. Normal glucose. LFTs elevated, troponin negative. Chest x-ray unremarkable. EKG unremarkable. Signed out to morning physician pending CT results and final dispo. <Ralph Pandey MD - Last Filed: 10/29/25 20:35> Medical Records Attestation: I reviewed the patient's medical records. <Ralph Pandey MD - Last Filed: 10/29/25 20:35> Lab Data Attestation: I reviewed the patient's lab results. <Ralph Pandey MD - Last Filed: 10/29/25 20:35> Result diagrams: 10/29/25 01:12 10/29/25 01:12 <Ralph Pandey MD - Last Filed: 10/29/25 20:35> Labs: Lab Results 10/29/25 10/29/25 Range/Units 01:12 02:17 WBC 17.6 H (4.5-10.0) K/mm3 RBC 4.99 (4.2-5.4) M/mm3 Hgb 15.1 H (12.0-15.0) g/dL Hct 44.8 (37.0-47.0) % MCV 89.8 (80-100) fl MCH 30.3 (26-34) pg MCHC 33.7 (32-36) g/dl RDW 13.8 (11.5-14.5) % Plt Count 461 H (150-375) k/mm3 MPV 10.0 (7.4-10.4) fl Immature Gran % (Auto) Not Reportable Neut % (Auto) Not Reportable Lymph % (Auto) Not Reportable [place] % (Auto) Not Reportable Eos % (Auto) Not Reportable Baso % (Auto) Not Reportable Lymph # (Auto) Not Reportable [place] # (Auto) Not Reportable Eos # (Auto) Not Reportable Baso # (Auto) Not Reportable Abs Immat Gran (auto) Not Reportable Absolute Neuts (auto) Not Reportable Absolute Nucleated RBC Not Reportable Total Counted 100 Neutrophils % (Manual) 55 (46-73) % Band Neutrophils % 0 (0-6) % Lymphocytes % (Manual) 36.0 (18-44) % Eosinophils % (Manual) 8 H (0-4) % Basophils % (Manual) 1 (0-1) % Nucleated RBC % Not Reportable Abs Neuts (Manual) 9.68 H (1.3-6.7) K/mm3 Abs Lymphs (Manual) 6.33 H (1.1-4.5) K/mm3 Absolute Eos (Manual) 1.40 H (0.02-0.50) K/mm3 Abs Basophils (Manual) 0.17 H (0.0-0.1) K/mm3 Smudge Cells Present Platelet Estimate Increased (Adequate) Large Platelets Present Schistocytes None seen PT 13.7 (11.1-14.7) Seconds INR 1.1 APTT 35.1 (22.3-36.8) Seconds Sodium 138 (137-145) mmol/L Potassium 4.2 (3.4-5.0) mmol/L Chloride 106 (98-107) mmol/L Carbon Dioxide 24 (22-30) mmol/L Anion Gap 8 (4-12) mmol/L BUN 12 (7-17) mg/dL Creatinine 0.72 (0.7-1.0) mg/dL Estim Creat Clear Calc 104 ml/min Estimated GFR > 60 (59 - ) Glucose 97 (65-110) mg/dL Calcium 9.2 (8.4-10.2) mg/dL Total Bilirubin 0.4 (0.2-1.3) mg/dL AST 96 H (14-36) U/L ALT 52 H (6-35) U/L Alkaline Phosphatase 146 H (38-126) U/L Troponin I < 0.012 (0.000-0.034) ng/mL Total Protein 7.8 (6.3-8.2) g/dL Albumin 4.4 (3.5-5.1) g/dL Lipase 187 (23-300) U/L POC Urine HCG, Qual Negative (Negative) <Ralph Pandey MD - Last Filed: 10/29/25 20:35> Lab Results 10/29/25 10/29/25 Range/Units 01:12 02:17 WBC 17.6 H (4.5-10.0) K/mm3 RBC 4.99 (4.2-5.4) M/mm3 Hgb 15.1 H (12.0-15.0) g/dL Hct 44.8 (37.0-47.0) % MCV 89.8 (80-100) fl MCH 30.3 (26-34) pg MCHC 33.7 (32-36) g/dl RDW 13.8 (11.5-14.5) % Plt Count 461 H (150-375) k/mm3 MPV 10.0 (7.4-10.4) fl Immature Gran % (Auto) Not Reportable Neut % (Auto) Not Reportable Lymph % (Auto) Not Reportable [place] % (Auto) Not Reportable Eos % (Auto) Not Reportable Baso % (Auto) Not Reportable Lymph # (Auto) Not Reportable [place] # (Auto) Not Reportable Eos # (Auto) Not Reportable Baso # (Auto) Not Reportable Abs Immat Gran (auto) Not Reportable Absolute Neuts (auto) Not Reportable Absolute Nucleated RBC Not Reportable Total Counted 100 Neutrophils % (Manual) 55 (46-73) % Band Neutrophils % 0 (0-6) % Lymphocytes % (Manual) 36.0 (18-44) % Eosinophils % (Manual) 8 H (0-4) % Basophils % (Manual) 1 (0-1) % Nucleated RBC % Not Reportable Abs Neuts (Manual) 9.68 H (1.3-6.7) K/mm3 Abs Lymphs (Manual) 6.33 H (1.1-4.5) K/mm3 Absolute Eos (Manual) 1.40 H (0.02-0.50) K/mm3 Abs Basophils (Manual) 0.17 H (0.0-0.1) K/mm3 Smudge Cells Present Platelet Estimate Increased (Adequate) Large Platelets Present Schistocytes None seen PT 13.7 (11.1-14.7) Seconds INR 1.1 APTT 35.1 (22.3-36.8) Seconds Sodium 138 (137-145) mmol/L Potassium 4.2 (3.4-5.0) mmol/L Chloride 106 (98-107) mmol/L Carbon Dioxide 24 (22-30) mmol/L Anion Gap 8 (4-12) mmol/L BUN 12 (7-17) mg/dL Creatinine 0.72 (0.7-1.0) mg/dL Estim Creat Clear Calc 104 ml/min Estimated GFR > 60 (59 - ) Glucose 97 (65-110) mg/dL Calcium 9.2 (8.4-10.2) mg/dL Total Bilirubin 0.4 (0.2-1.3) mg/dL AST 96 H (14-36) U/L ALT 52 H (6-35) U/L Alkaline Phosphatase 146 H (38-126) U/L Troponin I < 0.012 (0.000-0.034) ng/mL Total Protein 7.8 (6.3-8.2) g/dL Albumin 4.4 (3.5-5.1) g/dL Lipase 187 (23-300) U/L POC Urine HCG, Qual Negative (Negative) <Sanchez Clay MD - Last Filed: 10/29/25 08:07> Imaging Data Radiologist's impression: ITS Impressions Chest X-Ray 10/29/25 06:16 IMPRESSION: 1. No acute cardiopulmonary findings. Abdomen/Pelvis CT 10/29/25 07:20 IMPRESSION: 1. Mild nonspecific gallbladder wall thickening. Consider ultrasound and/or HIDA scan if indicated. 2. Otherwise no acute abnormality. Abdomen Ultrasound 10/29/25 07:59 IMPRESSION: 1: Cholelithiasis with gallbladder wall thickening. Consider cholecystitis in the appropriate clinical setting. <Ralph Pandey MD - Last Filed: 10/29/25 20:35> ITS Impressions Chest X-Ray 10/29/25 06:16 IMPRESSION: 1. No acute cardiopulmonary findings. Abdomen/Pelvis CT 10/29/25 07:20 IMPRESSION: 1. Mild nonspecific gallbladder wall thickening. Consider ultrasound and/or HIDA scan if indicated. 2. Otherwise no acute abnormality. Abdomen Ultrasound 10/29/25 07:59 IMPRESSION: 1: Cholelithiasis with gallbladder wall thickening. Consider cholecystitis in the appropriate clinical setting. <Sanchez Clay MD - Last Filed: 10/29/25 08:07> Discharge Plan Discharge Clinical Impression: Abdominal pain, RUQ, Acute cholecystitis <Ralph Pandey MD - Last Filed: 10/29/25 20:35> Patient Disposition: Still a Patient <Ralph Pandey MD - Last Filed: 10/29/25 20:35> Condition: Stable <Ralph Pandey MD - Last Filed: 10/29/25 20:35>
[2025-10-29 01:30] LABS: INR 1.1; Prothrombin Time 13.7 Seconds (11.1-14.7)
[2025-10-29 01:31] LABS: Partial Thromboplastin Time 35.1 Seconds (22.3-36.8)
[2025-10-29] MEDS: KETOROLAC 15 MG/ML VIAL (*BKC) IV PUSH (01:35)
[2025-10-29] MEDS: MORPHINE SULFATE (*CRX) 4 MG/ML INJ IV PUSH (01:35)
[2025-10-29] MEDS: LACTATED RINGERS 1,000 ML 999 ML IV CONT (01:35)
[2025-10-29] MEDS: ONDANSETRON INJ 4 MG/2 ML VIAL IV PUSH (01:35)
[2025-10-29 01:45] LABS: Basophils Absolute Manual 0.17 K/mm3 (0.0-0.1); Basophils Percent Manual 1 % (0-1); Eosinophils Absolute Manual 1.40 K/mm3 (0.02-0.50); Eosinophils Percent Manual 8 % (0-4); Lymphocytes Absolute Manual 6.33 K/mm3 (1.1-4.5); Lymphocytes Percent Manual 36.0 % (18-44); Neutrophils Percent Manual 55 % (46-73); Total Cells Counted 100
[2025-10-29 01:46] LABS: Band Neutrophils Percent 0 % (0-6); Neutrophils Absolute Manual 9.68 K/mm3 (1.3-6.7); Schistocytes None Seen; Smudge Cells PRESENT
[2025-10-29 01:59] LABS: Alanine Aminotransferase 52 U/L (6-35); Albumin Level 4.4 g/dL (3.5-5.1); Alkaline Phosphatase 146 U/L (38-126); Anion Gap 8 mmol/L (4-12); Aspartate Amino Transferase 96 U/L (14-36); Bilirubin,Total 0.4 mg/dL (0.2-1.3); Blood Urea Nitrogen 12 mg/dL (7-17); Calcium 9.2 mg/dL (8.4-10.2); Carbon Dioxide 24 mmol/L (22-30); Chloride 106 mmol/L (98-107); Estimated CRCL calculation 104 ml/min; Estimated Glomerular Filt Rate > 60; Glucose 97 mg/dL (65-110); Lipase 187 U/L (23-300); Potassium 4.2 mmol/L (3.4-5.0); Sodium 138 mmol/L (137-145); Total Protein 7.8 g/dL (6.3-8.2)
[2025-10-29 02:10] LABS: Troponin I < 0.012 ng/mL (0.000-0.034)
[2025-10-29 02:18] LABS: BEDSIDEPREGUCG Negative (Negative)
--- NOTE | 2025-10-29 07:10 | PC.NURSE ---
Assumed care of pt from [place]. Pt resting and denies complaints
[2025-10-29] MEDS: PIPERACILLIN/TAZOBACTAM SOD 3.375 GM in SODIUM CHLORIDE 0.9% IV 50 ML 100 ML IVPB ×3 (08:39→20:08)
--- NOTE | 2025-10-29 08:57 | WPCEDHO ---
ED Hand Off Checklist All vitals saved:y IV Site documented:y All med administrations documented:y Triage Note Triage Note pt ambulatory to ED from home w c 10/29/25 01:03 /o medial cp since last night. pt also c/o upper back and upper stomach pain. pt reports laying supine increases her pain. pt took some tums about an hour ago w no relief. denies any cardiac hx. Allergies erythromycin base Allergy (Unknown, Verified 10/07/25 18:42) RASH PER UNCODED ALLERGIES tramadol Allergy (Unknown, Verified 10/07/25 18:42) Nausea and Vomiting Family History (Last Reviewed 10/29/25 @ 01:25 by Ralph Pandey MD) Mother Hyperlipidemia Diabetes mellitus Father Heart disease Acute myocardial infarction Sibling Hyperlipidemia Grandparent Breast cancer Heart disease Administered/Completed Medications Discontinued Medications Aspirin (Aspirin 81 Mg Chewable Tablet) 324 mg PO ONCE STA Stop: 10/29/25 01:10 Last Admin: 10/29/25 01:24 Dose: Not Given Documented By: TOMASA Non-Admin Reason: Order Discontinued Lactated Ringer's (Lr - Lactated Ringers Iv) 1,000 mls @ 999 mls/hr IV CONT .Q1H1M STA Stop: 10/29/25 02:23 Last Infusion: 10/29/25 04:43 Dose: Infused Documented By: Admin: 10/29/25 01:35 Dose: 999 mls/hr Documented By: TOMASA Piperacillin Sod/Tazobactam (Sod 3.375 gm/ Sodium Chloride) 50 mls @ 100 mls/hr IVPB ONCE STA Stop: 10/29/25 08:17 Last Admin: 10/29/25 08:39 Dose: 100 mls/hr Documented By: TED Ketorolac Tromethamine (Ketorolac 15 Mg/Ml Vial (*Bkc)) 15 mg IV PUSH ONCE ONE Stop: 10/29/25 01:24 Last Admin: 10/29/25 01:35 Dose: 15 mg Documented By: CRYSTALW Morphine Sulfate (Morphine Sulfate (*Crx) 4 Mg/Ml Inj) 4 mg IV PUSH ONCE STA Stop: 10/29/25 01:24 Last Admin: 10/29/25 01:35 Dose: 4 mg Documented By: CRYSTALW Ondansetron HCl (Ondansetron Inj 4 Mg/2 Ml Vial) 4 mg IV PUSH ONCE STA Stop: 10/29/25 01:24 Last Admin: 10/29/25 01:35 Dose: 4 mg Documented By: TOMASA Notes 10/29/25 07:10 (created 10/29/25 07:19) Nurse Note by Carito Styles Assumed care of pt from [place]. Pt resting and denies complaints Initialized on 10/29/25 07:19 - END OF NOTE Interventions/Assessments Cardiac Monitoring Start: 10/29/25 01:00 Freq: Status: Complete Protocol: Document 10/29/25 01:17 EMW (Rec: 10/29/25 01:17 EMW [id number]) Senior Net C Developer Assessment Senior Net C Developer Yes Applied Pulse Rate (60-100 102 H beats/min) IV / Saline Lock, Insert Start: 10/29/25 01:09 Freq: STAT Status: Active Protocol: Document 10/29/25 01:17 EMW (Rec: 10/29/25 01:17 EMW [id number]) IV Assessment Peripheral Access Right Wrist IV Catheter Access Initiated IV Insertion Date 10/29/25 IV Insertion Time 01:17 Catheter Gauge 18 IV Insertion 1 Attempts Ultrasound Used for No Placement IV Site Assessment WNL IV Care and WNL Maintenance PA: Cardiovascular Assessment Start: 10/29/25 01:00 Freq: Status: Complete Protocol: Document 10/29/25 01:18 EMW (Rec: 10/29/25 01:18 EMW [id number]) Cardiovascular Assessment Cardiovascular Chest Pain Symptoms Skin Description Normal Color Chest Pain Assessment Chest Pain Intensity 6 Chest Pain Location Midsternal Description and Tightness Symptoms Chest Pain Duration > 6 Hours PA: Gastrointestinal Assessment Start: 10/29/25 01:23 Freq: Status: Active Protocol: Document 10/29/25 02:17 EMW (Rec: 10/29/25 02:18 EMW [id number]) GI Assessment Gastrointestinal Nausea,Pain Symptoms Pattern Normal Nausea/Vomiting Assessment Nausea Frequency Intermittent PA: Respiratory Assessment Start: 10/29/25 01:00 Freq: Status: Complete Protocol: Document 10/29/25 01:18 EMW (Rec: 10/29/25 01:18 EMW [id number]) Oxygen Delivery Oxygen Delivery Room Air Pulse Oximetry (90- 100 100 %) Respiratory Assessment Symptoms None Effort Normal Depth Normal Cough Description None Last Vital Signs Temperature 98.9 F 10/29/25 01:03 Pulse Rate 78 10/29/25 08:36 Respiratory Rate 12 10/29/25 08:36 Pulse Oximetry 98 10/29/25 08:36 Blood Pressure 127/86 10/29/25 08:36 Blood Pressure Mean 99 10/29/25 08:36 Blood Pressure Position Supine 10/29/25 06:58 Oxygen Delivery Room Air 10/29/25 01:18 Weight 91.3 kg 10/29/25 01:03 Last Result - Abnormals Only WBC 17.6 K/mm3 (4.5-10.0) H 10/29/25 01:12 Hgb 15.1 g/dL (12.0-15.0) H 10/29/25 01:12 Plt Count 461 k/mm3 (150-375) H 10/29/25 01:12 Eosinophils % (Manual) 8 % (0-4) H 10/29/25 01:12 Abs Neuts (Manual) 9.68 K/mm3 (1.3-6.7) H 10/29/25 01:12 Abs Lymphs (Manual) 6.33 K/mm3 (1.1-4.5) H 10/29/25 01:12 Absolute Eos (Manual) 1.40 K/mm3 (0.02-0.50) H 10/29/25 01:12 Abs Basophils (Manual) 0.17 K/mm3 (0.0-0.1) H 10/29/25 01:12 AST 96 U/L (14-36) H 10/29/25 01:12 ALT 52 U/L (6-35) H 10/29/25 01:12 Alkaline Phosphatase 146 U/L (38-126) H 10/29/25 01:12 Most Recent Suicide Severity Rating Suicide Severity Rating NO RISK INDICATED 10/29/25 01:03
[2025-10-29] MEDS: LACTATED RINGERS 1,000 ML 125 ML IV CONT ×2 (10:15→19:18)
--- NOTE | 2025-10-29 10:44 | P.CONGS_ITS ---
Assessment and Plan Assessment and plan (1) Cholelithiasis: Code(s): K80.20 - Calculus of gallbladder without cholecystitis without obstruction Status: Acute Assessment and Plan: Patient presented to the ED around 1:30 am with complaints of upper epigastric pain radiating to her back between her shoulder blades that started earlier in the evening. She had a similar episode the night prior that resolved on its own. Upon arrival to ED, labs revealed WBC of 17,000. Started on Zosyn. CT showed mild wall thickening and ultrasound showed cholelithiasis. Patient admitted for further workup. She would like to discuss options with her regarding surgery vs conservative management. Will keep patient NPO. Plan Discussed patient's case and plan of care with Dr. Michael. History of Present Illness Consult details Consult date: 10/29/25 Reason for consult: other (biliary colic) Requesting physician: Sanchez Clay MD Narrative: Patient is a 40-year-old female with history of fibromyalgia, hidradenitis suppurativa, psoriasis, and psoriatic arthritis who we have been asked to see in surgical consultation for biliary colic. Patient presented to the emergency department early this morning around 1:30 a.m. with complaints of epigastric and chest pain radiating towards her back between her shoulder blades. She stated that the pain started when she laid down for bed. She had eaten a Thanksgiving dinner earlier in the evening. Patient states that she did have a similar episode of this 1 night prior. She initially thought that it was just indigestion so she took Tums and was able to fall asleep and the symptoms subsided. Patient denies any nausea or vomiting within the past couple of days. She does state that last week she was vomiting, but could have been a GI bug. Denies any sick contacts, suspicious foods, or recent travel outside of the country. Upon arrival to the emergency department last night labs revealed an elevated white blood cell count of 17.6. Normal bilirubin, but slightly elevated AST/ ALT and ALP. Patient was slightly hypotensive around 7:00 a.m. this morning, but this has since Normalized with last blood pressure of 127/86. A CT of the abdomen and pelvis demonstrated mild nonspecific gallbladder wall thickening. A right upper quadrant ultrasound was then obtained and demonstrated cholelithiasis with gallbladder wall thickening. General surgery team was consulted at this time. At the time of my interview this morning, patient states that the pain had somewhat subsided after administration of IV pain medication. Denies any nausea this morning. No previous abdominal surgeries. Last bowel movement 2 days ago. [facility] Past Medical History Medical History Hyperlipidemia Tonsillar hypertrophy Tobacco abuse BMI 34.0-34.9,adult Fibromyalgia Lump of breast, left Surgical History Surgical History Hx of lumpectomy Family History Family History Mother Hyperlipidemia Diabetes mellitus Father Heart disease Acute myocardial infarction Sibling Hyperlipidemia Grandparent Breast cancer Heart disease Social History Social History Smoking packs per day: 0.25 Smoking cigarettes per day: 5.0 Years smoked: 15 Smoking pack-years: 3.75 Smoking status: Current every day smoker Second hand tobacco smoke exposure: No Alcohol intake: current Substance use: never Substance use type: does not use Lack of Transportation: No Lack of Food: Never True Current Housing: I Have Housing Concerned About Future Housing: No Difficulty Paying Gas/Electric Bills: No Difficulty Paying for Meds: No Currently Unemployed: No Education: Associate Degree Difficulty w/ Childcare or Family Care: No Living arrangements: with family Occupation/Education: occupation 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[employer] Gender identity (if verbalized by the patient): Female Spiritual care concerns: No Meds Home Medications and Allergies Home Medications ?Medication ?Instructions ?Recorded ?Confirmed ?Type etonogestrel 68 mg subdermal 1 implant subdermal ONCE 03/22/22 10/29/25 History implant (Nexplanon) varenicline tartrate 0.5 mg (11)-1 See Rx Instructions PO PER PKG DIR 09/05/25 10/29/25 Rx mg (42) tablets in a dose pack #53 ea rimegepant 75 mg disintegrating 75 mg PO ONCE PRN migr nimo 09/06/25 10/29/25 Rx tablet (Nurtec ODT) headache #8 tabs tirzepatide (weight loss) 7.5 7.5 mg (0.5 mL) subcut W EEKLY #2 mL 09/07/25 10/29/25 Rx mg/0.5 mL subcutaneous solution (Zepbound) cholecalciferol (vitamin D3) 1,250 1,250 mcg PO WEEKLY #8 caps 09/27/25 10/29/25 Rx mcg (50,000 unit) capsule Allergies Allergy/AdvReac Type Severity Reaction Status Date / Time erythromycin base Allergy Unknown RASH Verified 10/29/25 10:01 tramadol Allergy Unknown Nausea and Verified 10/29/25 10:01 Vomiting Vital Signs Vital Signs - 24 hr 10/29/25 01:03 10/29/25 01:06 10/29/25 01:07 Temperature 98.9 F Pulse Rate 100 105 H 101 H Respiratory Rate 17 19 14 Blood Pressure 151/104 H 151/101 H 151/104 H Pulse Oximetry 100 98 100 Oxygen Delivery Room Air 10/29/25 01:08 10/29/25 01:17 10/29/25 01:18 Temperature Pulse Rate 102 H 102 H Respiratory Rate 13 Blood Pressure Pulse Oximetry 99 100 Oxygen Delivery Room Air 10/29/25 01:32 10/29/25 01:45 10/29/25 01:55 Temperature Pulse Rate 94 96 94 Respiratory Rate 17 17 20 Blood Pressure 134/91 H Pulse Oximetry 97 95 96 Oxygen Delivery 10/29/25 02:00 10/29/25 02:01 10/29/25 02:17 Temperature Pulse Rate 96 95 Respiratory Rate 19 16 Blood Pressure 125/89 Pulse Oximetry 95 96 99 Oxygen Delivery 10/29/25 02:30 10/29/25 02:45 10/29/25 04:00 Temperature Pulse Rate 93 98 86 Respiratory Rate 17 15 14 Blood Pressure 145/95 H Pulse Oximetry 96 96 93 Oxygen Delivery 10/29/25 04:16 10/29/25 04:17 10/29/25 06:57 Temperature Pulse Rate 88 88 Respiratory Rate 15 14 Blood Pressure 138/95 H Pulse Oximetry 95 95 97 Oxygen Delivery 10/29/25 06:58 10/29/25 06:58 10/29/25 06:59 Temperature Pulse Rate 80 Respiratory Rate 14 Blood Pressure 97/67 L 87/59 L 97/67 L Pulse Oximetry 98 98 96 Oxygen Delivery 10/29/25 08:35 10/29/25 08:36 Temperature Pulse Rate 79 78 Respiratory Rate 11 L 12 Blood Pressure 127/86 Pulse Oximetry 98 98 Oxygen Delivery Exam 2 Const: General: comfortable and no acute distress Eyes: General: appearance normal, both eyes and all related structures Neck: Neck: supple Resp: Effort & Inspection: normal respiratory effort Cardio: Rate: regular rate GI: Inspection: non-distended GI Palp: Yes Soft to palpation, Yes Tenderness to palpation present (GI) ( Right upper quadrant. Positive Dumont sign.) and No Guarding due to palpation present (GI) Auscultation: normal bowel sounds Skin: General skin exam: normal color and no rashes or lesions noted Neuro: Sensory Exam: normal sensation Extrem: General: normal to inspection Psych: Mental Status: mental status grossly normal Results Labs 10/29/25 01:12 10/29/25 01:12 Labs: Abnormal lab results 10/29/25 Range/Units 01:12 WBC 17.6 H (4.5-10.0) K/mm3 Hgb 15.1 H (12.0-15.0) g/dL Plt Count 461 H (150-375) k/mm3 Eosinophils % (Manual) 8 H (0-4) % Abs Neuts (Manual) 9.68 H (1.3-6.7) K/mm3 Abs Lymphs (Manual) 6.33 H (1.1-4.5) K/mm3 Absolute Eos (Manual) 1.40 H (0.02-0.50) K/mm3 Abs Basophils (Manual) 0.17 H (0.0-0.1) K/mm3 AST 96 H (14-36) U/L ALT 52 H (6-35) U/L Alkaline Phosphatase 146 H (38-126) U/L Diabetes panel 10/29/25 Range/Units 01:12 Sodium 138 (137-145) mmol/L Potassium 4.2 (3.4-5.0) mmol/L Chloride 106 (98-107) mmol/L Carbon Dioxide 24 (22-30) mmol/L BUN 12 (7-17) mg/dL Creatinine 0.72 (0.7-1.0) mg/dL Glucose 97 (65-110) mg/dL Calcium 9.2 (8.4-10.2) mg/dL AST 96 H (14-36) U/L ALT 52 H (6-35) U/L Alkaline Phosphatase 146 H (38-126) U/L Total Protein 7.8 (6.3-8.2) g/dL Albumin 4.4 (3.5-5.1) g/dL Calcium panel 10/29/25 Range/Units 01:12 Calcium 9.2 (8.4-10.2) mg/dL Albumin 4.4 (3.5-5.1) g/dL Pituitary panel 10/29/25 Range/Units 01:12 Sodium 138 (137-145) mmol/L Potassium 4.2 (3.4-5.0) mmol/L Chloride 106 (98-107) mmol/L Carbon Dioxide 24 (22-30) mmol/L BUN 12 (7-17) mg/dL Creatinine 0.72 (0.7-1.0) mg/dL Glucose 97 (65-110) mg/dL Calcium 9.2 (8.4-10.2) mg/dL Adrenal panel 10/29/25 Range/Units 01:12 Sodium 138 (137-145) mmol/L Potassium 4.2 (3.4-5.0) mmol/L Chloride 106 (98-107) mmol/L Carbon Dioxide 24 (22-30) mmol/L BUN 12 (7-17) mg/dL Creatinine 0.72 (0.7-1.0) mg/dL Glucose 97 (65-110) mg/dL Calcium 9.2 (8.4-10.2) mg/dL Total Bilirubin 0.4 (0.2-1.3) mg/dL AST 96 H (14-36) U/L ALT 52 H (6-35) U/L Alkaline Phosphatase 146 H (38-126) U/L Total Protein 7.8 (6.3-8.2) g/dL Albumin 4.4 (3.5-5.1) g/dL All other labs normal.
--- NOTE | 2025-10-29 14:04 | PM.IMHP ---
H&P: HPI History of Present Illness Date/Time: 10/29/25 14:04 Chief Complaint: Chest and abdominal pain Narrative: 40-year-old female with hyperlipidemia, fibromyalgia, current smoker presents to the ED on 10/29/2025 with sharp, stabbing epigastric pain radiating towards her back between her shoulder blades. The pain began about 1 hour prior to arrival and had not improved prior to arrival. Patient ate dinner between 6 and 7 last in the pain developed around midnight, preventing patient from sleeping. She doses some nausea but has had no episodes of vomiting. Patient states the same symptoms happened around the same time yesterday after eating. Patient has no known history of gallbladder disease. No history of cardiac disease. No past history of gastric surgery but is on tirzepatide for weight loss since March. She has lost about 40 lb since starting the medication. Patient states she had a ?24 hour GI bug? last week with some diarrhea and vomiting that resolved on its own. Patient denies urinary symptoms, difficulty breathing, loss of consciousness, fever. Initial vital signs 151/104, HR 100, respirations 17, afebrile and 100% on room air. WBC 17.6. Liver enzymes elevated with AST 96, ALT 52, alk-phos 146. Troponin negative. EKG shows sinus tach with rate of 100. Chest x-ray no acute cardiopulmonary findings. Abdomen pelvis CT reads mild nonspecific gallbladder wall thickening. Right upper quadrant ultrasound confirms cholelithiasis with gallbladder wall thickening. Consider cholecystitis Review of Systems Review of Systems: All systems reviewed & are unremarkable except as noted in HPI and below PMFSH Past Medical History Medical History Hyperlipidemia Tonsillar hypertrophy Tobacco abuse BMI 34.0-34.9,adult Fibromyalgia Lump of breast, left Surgical History Surgical History Hx of lumpectomy Family History Family History Mother Hyperlipidemia Diabetes mellitus Father Heart disease Acute myocardial infarction Sibling Hyperlipidemia Grandparent Breast cancer Heart disease Social History Social History Smoking packs per day: 0.25 Smoking cigarettes per day: 5.0 Years smoked: 15 Smoking pack-years: 3.75 Smoking status: Current every day smoker Second hand tobacco smoke exposure: No Alcohol intake: current Substance use: never Substance use type: does not use Lack of Transportation: No Lack of Food: Never True Current Housing: I Have Housing Concerned About Future Housing: No Difficulty Paying Gas/Electric Bills: No Difficulty Paying for Meds: No Currently Unemployed: No Education: Associate Degree Difficulty w/ Childcare or Family Care: No Living arrangements: with family Occupation/Education: occupation 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[employer] Gender identity (if verbalized by the patient): Female Spiritual care concerns: No Meds Home Medications and Allergies Home Medications ?Medication ?Instructions ?Recorded ?Confirmed ?Type etonogestrel 68 mg subdermal 1 implant subdermal ONCE 03/22/22 10/29/25 History implant (Nexplanon) varenicline tartrate 0.5 mg (11)-1 See Rx Instructions PO PER PKG DIR 09/05/25 10/29/25 Rx mg (42) tablets in a dose pack #53 ea rimegepant 75 mg disintegrating 75 mg PO ONCE PRN migraine 09/06/25 10/29/25 Rx tablet (Nurtec ODT) headache #8 tabs tirzepatide (weight loss) 7.5 7.5 mg (0.5 mL) subcut WEEKLY #2 mL 09/07/25 10/29/25 Rx mg/0.5 mL subcutaneous solution (Zepbound) cholecalciferol (vitamin D3) 1,250 1,250 mcg PO WEEKLY #8 caps 09/27/25 10/29/25 Rx mcg (50,000 unit) capsule Allergies Allergy/AdvReac Type Severity Reaction Status Date / Time erythromycin base Allergy Unknown RASH Verified 10/29/25 10:01 tramadol Allergy Unknown Nausea and Verified 10/29/25 10:01 Vomiting Vital Signs Vital Signs - 24 hr 10/29/25 01:03 10/29/25 01:06 10/29/25 01:07 Temperature 98.9 F Pulse Rate 100 105 H 101 H Respiratory Rate 17 19 14 Blood Pressure 151/104 H 151/101 H 151/104 H Pulse Oximetry 100 98 100 Oxygen Delivery Room Air 10/29/25 01:08 10/29/25 01:17 10/29/25 01:18 Temperature Pulse Rate 102 H 102 H Respiratory Rate 13 Blood Pressure Pulse Oximetry 99 100 Oxygen Delivery Room Air 10/29/25 01:32 10/29/25 01:45 10/29/25 01:55 Temperature Pulse Rate 94 96 94 Respiratory Rate 17 17 20 Blood Pressure 134/91 H Pulse Oximetry 97 95 96 Oxygen Delivery 10/29/25 02:00 10/29/25 02:01 10/29/25 02:17 Temperature Pulse Rate 96 95 Respiratory Rate 19 16 Blood Pressure 125/89 Pulse Oximetry 95 96 99 Oxygen Delivery 10/29/25 02:30 10/29/25 02:45 10/29/25 04:00 Temperature Pulse Rate 93 98 86 Respiratory Rate 17 15 14 Blood Pressure 145/95 H Pulse Oximetry 96 96 93 Oxygen Delivery 10/29/25 04:16 10/29/25 04:17 10/29/25 06:57 Temperature Pulse Rate 88 88 Respiratory Rate 15 14 Blood Pressure 138/95 H Pulse Oximetry 95 95 97 Oxygen Delivery 10/29/25 06:58 10/29/25 06:58 10/29/25 06:59 Temperature Pulse Rate 80 Respiratory Rate 14 Blood Pressure 97/67 L 87/59 L 97/67 L Pulse Oximetry 98 98 96 Oxygen Delivery 10/29/25 08:35 10/29/25 08:36 10/29/25 12:42 Temperature Pulse Rate 79 78 Respiratory Rate 11 L 12 Blood Pressure 127/86 Pulse Oximetry 98 98 Oxygen Delivery Room Air Exam Narrative: GENERAL: non-toxic appearing, in no acute distress. HEAD: Normocephalic, atraumatic. EYES: PERRLA. Conjunctivae clear. NOSE: Normal no drainage. THROAT: Pharynx clear, no exudate. NECK: Trachea midline. No adenopathy, no masses. RESPIRATORY: Airway patent, respirations nonlabored. CTA. CARDIOVASCULAR: Regular rate and rhythm BREASTS: Defer GASTROINTESTINAL: Abdomen is soft. Nondistended. Tenderness in the right upper quadrant. Positive Dumont sign GENITOURINARY: Defer MUSCULOSKELETAL: Moves all extremities. No gross deformities. SKIN: Warm, dry, normal color. NEURO: A&O X4. Speech clear PSYCHIATRIC: Normal interaction H&P: Results Labs Labs: Short CBC 10/29/25 Range/Units 01:12 WBC 17.6 H (4.5-10.0) K/mm3 Hgb 15.1 H (12.0-15.0) g/dL Hct 44.8 (37.0-47.0) % Plt Count 461 H (150-375) k/mm3 [facility] 10/29/25 01:12 Sodium 138 Potassium 4.2 Chloride 106 Carbon Dioxide 24 BUN 12 Creatinine 0.72 Glucose 97 Calcium 9.2 Cardiac Enzymes 10/29/25 Range/Units 01:12 Troponin I < 0.012 (0.000-0.034) ng/mL Liver Function 10/29/25 Range/Units 01:12 Total Bilirubin 0.4 (0.2-1.3) mg/dL AST 96 H (14-36) U/L ALT 52 H (6-35) U/L Alkaline Phosphatase 146 H (38-126) U/L Albumin 4.4 (3.5-5.1) g/dL Assessment and Plan Assessment and plan (1) Acute cholecystitis: Code(s): K81.0 - Acute cholecystitis Status: Acute Assessment and Plan: Patient presents with epigastric pain radiating to her back in between her shoulder blades. WBC 17.6. Liver enzymes elevated with AST 96, ALT 52, alk-phos 146. Troponin negative. Right upper quadrant ultrasound confirms cholelithiasis with gallbladder wall thickening. Consider cholecystitis. -general surgery consult-plan for OR on 10/30 @ 0900 -clear liquid diet-NPO at midnight -hydromorphone p.r.n. -Zofran p.r.n. -Zosyn 3.375 mg q.6 hours (2) Dehydration: Code(s): E86.0 - Dehydration Status: Acute Assessment and Plan: Patient appears hemoconcentrated with WBC 17.6, hemoglobin 15.1. Platelets are 461 however, it appears patient is always in the 400s and 500s. -1 L LR bolus in ED -LR @ 125 started on 10/29 (3) Transaminitis: Code(s): R74.01 - Elevation of levels of liver transaminase levels Status: Acute Assessment and Plan: Related to # 1. AST 96, ALT 52, alk-phos 146. Total bilirubin 0.4. -repeat chemistry in a.m. -patient scheduled for lap ed on 10/30 Plan Diet: Clear liquid-NPO benign GI prophylaxis: NA DVT prophylaxis: SCDs lines/drains: PIV Fluids: 1 L LR bolus. LR 125 started on 10/21 Code status: Full code Quality VTE Prophylaxis VTE prophylaxis: mechanical ordered Hospitalist MIPS Advance Care Plan I have confirmed that the patient's Advanced Care Plan is present, code status is documented, or surrogate decision maker is listed in patient medical record.: Yes Medication Reconciliation I have utilized all available resources to obtain, update and review the patients current medications (includes all prescriptions, OTC, herbals, cannabis, and nutritional supplements).: Yes
[2025-10-29] MEDS: HYDROmorphone HCL INJ (*CRX) 1 MG/ML SYR 0.5 MG IV PUSH (19:54)
[2025-10-30] MEDS: HYDROmorphone HCL INJ (*CRX) 1 MG/ML SYR 0.5 MG IV PUSH ×2 (00:07→04:28)
[2025-10-30] MEDS: PIPERACILLIN/TAZOBACTAM SOD 3.375 GM in SODIUM CHLORIDE 0.9% IV 50 ML 100 ML IVPB ×2 (02:52→09:09)
[2025-10-30] MEDS: LACTATED RINGERS 1,000 ML 125 ML IV CONT (04:31)
[2025-10-30 04:54] VITALS: BP 127/90; PULSE 70; RESP 17; TEMP 36.7; O2SAT 97
[2025-10-30 06:07] LABS: Alanine Aminotransferase 91 U/L (6-35); Albumin Level 3.3 g/dL (3.5-5.1); Alkaline Phosphatase 129 U/L (38-126); Anion Gap 3 mmol/L (4-12); Aspartate Amino Transferase 47 U/L (14-36); Bilirubin,Total 0.5 mg/dL (0.2-1.3); Blood Urea Nitrogen 6 mg/dL (7-17); Calcium 8.3 mg/dL (8.4-10.2); Carbon Dioxide 25 mmol/L (22-30); Chloride 108 mmol/L (98-107); Estimated CRCL calculation 111 ml/min; Estimated Glomerular Filt Rate > 60; Glucose 84 mg/dL (65-110); Potassium 3.8 mmol/L (3.4-5.0); Sodium 136 mmol/L (137-145); Total Protein 5.9 g/dL (6.3-8.2)
--- NOTE | 2025-10-30 07:25 | P.PNIM_ITS ---
Progress Note: A&P Assessment and Plan (1) Acute cholecystitis: Code(s): K81.0 - Acute cholecystitis Status: Acute Assessment and Plan: Patient presents with epigastric pain radiating to her back in between her shoulder blades. WBC 17.6. Liver enzymes elevated with AST 96, ALT 52, alk- phos 146. Troponin negative. Right upper quadrant ultrasound confirms cholelithiasis with gallbladder wall thickening. Consider cholecystitis. - CT abdomen/pelvis: Mild nonspecific gallbladder wall thickening - US abdomen: cholelithiasis with gallbladder wall thickening - IV pain management - Gentle IV fluid resuscitation - Antibiotic: Zosyn 3.375 mg every 6 hours started on 10/29 - Diet:NPO - Monitor vital signs, I and O's, check stool output, neuro status and patient is a fall risk - Monitor serum electrolytes and CBC - Monitor lactic acid - Consult general surgery (2) Transaminitis: Code(s): R74.01 - Elevation of levels of liver transaminase levels Status: Acute Assessment and Plan: Likely related to cholecystitis On admission: AST 96, ALT 52, alk-phos 146. Total bilirubin 0.4. LFTs downtrending See plan for above (3) Dehydration: Code(s): E86.0 - Dehydration Status: Acute Assessment and Plan: Patient appears hemoconcentrated with WBC 17.6, hemoglobin 15.1. Platelets are 461 however, it appears patient is always in the 400s and 500s. -1 L LR bolus in ED -LR @ 125 started on 10/29 Plan Diet: Clear liquid-NPO benign GI prophylaxis: NA DVT prophylaxis: SCDs lines/drains: PIV Fluids: 1 L LR bolus. LR 125 started on 10/21 Code status: Full code Subjective Date/time seen: 10/30/25 07:25 Review of Systems Review of Systems: All systems reviewed & are unremarkable except as noted in HPI and below Exam Narrative: AF General: well nourished, well-developed female in no acute respiratory distress who is nontoxic appearing, lying semi recumbent in bed. HEENT: Normocephalic. Atraumatic. Pupils equal round reactive to light. Extraocular movement intact. Sclera clear and anicteric. Nares patent. No oral lesions. Moist mucous membranes. Tongue is midline. Palate kaity symmetrically. No facial asymmetry. Neck: Neck was supple. No dominant adenopathy, thyromegaly or masses. 2+ carotid upstrokes without bruits. Chest: Lungs are clear to auscultation bilaterlly. No wheezes or crackles. CV: Heart was regular rate and rhythm. S1-S2. No murmurs, gallops, or rubs. Abd: Abdomen was soft. Nontender. Nondistended. Postive bowel sounds. No organomegaly or masses. Ext: No clubbing, cyanosis, or edema. 2+ DP pulses bilaterally. Neuro: Patient is alert and oriented x4. Strenth is 5/5 in both upper and lower extremities. Cranial nerves 2-12 are intact. Speech is clear. Psych: Normal nood and affect. Patient is pleasant and cooperative. Skin: Warm and dry. No rashes noted. Objective Data Vital Signs Vital Signs: Vital Signs - 24 hr 10/29/25 08:35 10/29/25 08:36 10/29/25 12:42 Temperature Pulse Rate 79 78 Respiratory Rate 11 L 12 Blood Pressure 127/86 Pulse Oximetry 98 98 Oxygen Delivery Room Air 10/29/25 14:45 10/29/25 19:28 10/30/25 04:54 Temperature 97.4 F L 98.0 F 98.1 F Pulse Rate 73 72 70 Respiratory Rate 16 18 17 Blood Pressure 126/76 116/82 127/90 Pulse Oximetry 99 99 97 Oxygen Delivery Intake/Output Intake/Output: Intake & Output 10/27/25 10/28/25 10/29/25 10/30/25 23:59 23:59 23:59 23:59 Intake Total 3270 1050 Balance 3270 1050 Meds/Results Medications: Active Medications Generic Name Dose Route Start Last Admin Trade Name Freq PRN Reason Stop Dose Admin Hydromorphone HCl 0.5 mg 10/29/25 08:32 10/30/25 04:28 Hydromorphone Hcl Inj (*Crx) 1 Mg/Ml Syr IV PUSH 0.5 mg Q4H PRN Administration Pain Rated 7-10 Piperacillin Sod/Tazobactam 50 mls @ 100 mls/hr 10/29/25 15:00 10/30/25 03:22 Sod 3.375 gm/ Sodium Chloride IVPB Infused Q6H SAIMA Infusion Lactated Ringer's 1,000 mls @ 125 mls/hr 10/29/25 08:35 10/30/25 04:31 Lr - Lactated Ringers Iv IV CONT 125 mls/hr .Q8H SAIMA Administration Ondansetron HCl 4 mg 10/29/25 15:01 Ondansetron Inj 4 Mg/2 Ml Vial IV PUSH Q4H PRN Nausea And Vomiting Radiology Results: ITS Impressions Chest X-Ray 10/29/25 06:16 IMPRESSION: 1. No acute cardiopulmonary findings. Abdomen/Pelvis CT 10/29/25 07:20 IMPRESSION: 1. Mild nonspecific gallbladder wall thickening. Consider ultrasound and/or HIDA scan if indicated. 2. Otherwise no acute abnormality. Abdomen Ultrasound 10/29/25 07:59 IMPRESSION: 1: Cholelithiasis with gallbladder wall thickening. Consider cholecystitis in the appropriate clinical setting. Labs Labs: Laboratory Results - last 24 hr 10/30/25 05:27 Sodium 136 L Potassium 3.8 Chloride 108 H Carbon Dioxide 25 Anion Gap 3 L BUN 6 L D Creatinine 0.67 L Estim Creat Clear Calc 111 Estimated GFR > 60 Glucose 84 Calcium 8.3 L Total Bilirubin 0.5 AST 47 H ALT 91 H Alkaline Phosphatase 129 H Total Protein 5.9 L Albumin 3.3 L Quality VTE Prophylaxis VTE prophylaxis: mechanical ordered
[2025-10-30 07:55] LABS: Hematocrit 39.2 % (37.0-47.0); Hemoglobin 12.7 g/dL (12.0-15.0); Mean Corpuscular HGB Conc 32.4 g/dl (32-36); Mean Corpuscular Hemoglobin 30.0 pg (26-34); Mean Corpuscular Volume 92.5 fl (80-100); Platelet Count Result 388 k/mm3 (150-375); Red Blood Count 4.24 M/mm3 (4.2-5.4); White Blood Count 13.5 K/mm3 (4.5-10.0)
[2025-10-30 08:12] LABS: Band Neutrophils Percent 0 % (0-6); Basophils Absolute Manual 0.00 K/mm3 (0.0-0.1); Basophils Percent Manual 0 % (0-1); Eosinophils Absolute Manual 1.48 K/mm3 (0.02-0.50); Eosinophils Percent Manual 11 % (0-4); Lymphocytes Absolute Manual 7.56 K/mm3 (1.1-4.5); Lymphocytes Percent Manual 56 % (18-44); Monocytes Absolute Manual 0.27 K/mm3 (0.1-0.90); Monocytes Percent Manual 2 % (3-9); Neutrophils Absolute Manual 4.18 K/mm3 (1.3-6.7); Neutrophils Percent Manual 31 % (46-73); Total Cells Counted 100
[2025-10-30 08:13] LABS: Schistocytes None Seen
--- NOTE | 2025-10-30 08:55 | WPDHPUPDATE1 ---
History and Physical Update Update Date/Time: 10/30/25 08:55 History and Physical has been reviewed, including an updated exam of the patient. There are NO changes in the patient's condition. Risks, benefits, and alternatives have been discussed and questions answered. Patient agrees to proceed with procedure.
--- NOTE | 2025-10-30 09:30 | P.PNAN_ITS ---
Anes - Initial Pre Proc Eval Procedure: Operation Date: 10/30/25 09:00 Proposed Procedures p Laparoscopic Cholecystectomy - Cathy Michael MD Date/Time: 10/30/25 09:30 Surgeon: Yonas Rodriguez MD Pre Op Diagnosis: Cholecystitis Patient Data Age: 40 Gender: F Height: 1.7 m Weight: 91.3 kg Last Vital Signs Temp 98.1 F 10/30/25 04:54 Pulse 70 10/30/25 04:54 Resp 17 10/30/25 04:54 BP 127/90 10/30/25 04:54 Pulse Ox 97 10/30/25 04:54 O2 Del Method Room Air 10/29/25 12:42 Allergies Allergy/AdvReac Type Severity Reaction Status Date / Time erythromycin base Allergy Unknown RASH Verified 10/29/25 10:01 tramadol AdvReac Unknown Nausea and Verified 10/30/25 09:27 Vomiting Home Medications ?Medication ?Instructions ?Recorded ?Confirmed ?Type etonogestrel 68 mg subdermal 1 implant subdermal ONCE 03/22/22 10/29/25 History implant (Nexplanon) varenicline tartrate 0.5 mg (11)-1 See Rx Instructions PO PER PKG DIR 09/05/25 10/29/25 Rx mg (42) tablets in a dose pack #53 ea rimegepant 75 mg disintegrating 75 mg PO ONCE PRN migr nimo 09/06/25 10/29/25 Rx tablet (Nurtec ODT) headache #8 tabs tirzepatide (weight loss) 7.5 7.5 mg (0.5 mL) subcut W EEKLY #2 mL 09/07/25 10/29/25 Rx mg/0.5 mL subcutaneous solution (Zepbound) cholecalciferol (vitamin D3) 1,250 1,250 mcg PO WEEKLY #8 caps 09/27/25 10/29/25 Rx mcg (50,000 unit) capsule Laboratory Tests 10/30/25 05:27 WBC 13.5 H K/mm3 (4.5-10.0) RBC 4.24 M/mm3 (4.2-5.4) Hgb 12.7 g/dL (12.0-15.0) Hct 39.2 % (37.0-47.0) MCV 92.5 fl (80-100) MCH 30.0 pg (26-34) MCHC 32.4 g/dl (32-36) RDW 14.0 % (11.5-14.5) Plt Count 388 H k/mm3 (150-375) MPV 10.7 H fl (7.4-10.4) Immature Gran % (Auto) Not Reportable Neut % (Auto) Not Reportable Lymph % (Auto) Not Reportable [place] % (Auto) Not Reportable Eos % (Auto) Not Reportable Baso % (Auto) Not Reportable Lymph # (Auto) Not Reportable [place] # (Auto) Not Reportable Eos # (Auto) Not Reportable Baso # (Auto) Not Reportable Abs Immat Gran (auto) Not Reportable Absolute Neuts (auto) Not Reportable Absolute Nucleated RBC Not Reportable Total Counted 100 Neutrophils % (Manual) 31 L % (46-73) Band Neutrophils % 0 % (0-6) Lymphocytes % (Manual) 56 H % (18-44) Monocytes % (Manual) 2 L % (3-9) Eosinophils % (Manual) 11 H % (0-4) Basophils % (Manual) 0 % (0-1) Nucleated RBC % Not Reportable Abs Neuts (Manual) 4.18 K/mm3 (1.3-6.7) Abs Lymphs (Manual) 7.56 H K/mm3 (1.1-4.5) Abs Monocytes (Manual) 0.27 K/mm3 (0.1-0.90) Absolute Eos (Manual) 1.48 H K/mm3 (0.02-0.50) Abs Basophils (Manual) 0.00 K/mm3 (0.0-0.1) Platelet Estimate Adequate (Adequate) Schistocytes None seen Sodium 136 L mmol/L (137-145) Potassium 3.8 mmol/L (3.4-5.0) Chloride 108 H mmol/L (98-107) Carbon Dioxide 25 mmol/L (22-30) Anion Gap 3 L mmol/L (4-12) BUN 6 L D mg/dL (7-17) Creatinine 0.67 L mg/dL (0.7-1.0) Estim Creat Clear Calc 111 ml/min Estimated GFR > 60 (59 - ) Glucose 84 mg/dL (65-110) Calcium 8.3 L mg/dL (8.4-10.2) Total Bilirubin 0.5 mg/dL (0.2-1.3) AST 47 H U/L (14-36) ALT 91 H U/L (6-35) Alkaline Phosphatase 129 H U/L (38-126) Total Protein 5.9 L g/dL (6.3-8.2) Albumin 3.3 L g/dL (3.5-5.1) Patient hx anesthesia problems: none Family hx anesthesia problems: none Results Review: All pre-operative results and documents have been reviewed as part of the pre- operative evaluation. FOR[facility]LY [facility] Past Medical History Medical History Hyperlipidemia Tonsillar hypertrophy Tobacco abuse BMI 34.0-34.9,adult Fibromyalgia Lump of breast, left Surgical History Surgical History Hx of lumpectomy Family History Family History Mother Hyperlipidemia Diabetes mellitus Father Heart disease Acute myocardial infarction Sibling Hyperlipidemia Grandparent Breast cancer Heart disease Social History Social History Smoking packs per day: 0.25 Smoking cigarettes per day: 5.0 Years smoked: 15 Smoking pack-years: 3.75 Smoking status: Current every day smoker Second hand tobacco smoke exposure: No Alcohol intake: current Substance use: never Substance use type: does not use Lack of Transportation: No Lack of Food: Never True Current Housing: I Have Housing Concerned About Future Housing: No Difficulty Paying Gas/Electric Bills: No Difficulty Paying for Meds: No Currently Unemployed: No Education: Associate Degree Difficulty w/ Childcare or Family Care: No Living arrangements: with family Occupation/Education: occupation 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 BMI 31, active smoker, for 20 pack years, pt has been on GLP1 but off for approx 10 days at this moment. Typically sedentary individual but can walk 1-2 fos without cp or sob. Informed Consent: The patient's anesthetic plan and its attendant risks and benefits were discussed with the patient/family/POA. Questions were solicited and answers provided to the satisfaction of the patient/family/POA.
[2025-10-30] MEDS: BUPIVACAINE/EPINEPHRINE 0.5% 50 ML VIAL 30 ML INFILTRATE (10:08)
--- NOTE | 2025-10-30 10:11 | S_PTH ---
PATIENT: Luiz France LOC: [id number] U#:[id number] AGE/SX: 40/F ROOM: 250 RE10/29/[address]: Nathan mae Oca, MD : 1985 BED: 01 DIS: 10/30/2025 SPEC #: [id number] RECD: 11/01/25 08:19 STATUS: AVA REJona #: [id number] SOLIS: 10/30/25 10:[address]: Cathy Michael DEPT: [facility] Surgical RECD BY: Eliana Mccoy ENTERED: 11/01/25 08:19 SP TYPE: Surgical OTHR DR: MD Elisabeth Beckman PA-C Dean F. Schueler, MD Tissues: A - Gallbladder Procedures: Hematoxylin and Eosin Stain Gross and Microscopic Level 3
--- NOTE | 2025-10-30 10:28 | P.OP_ITS ---
Procedure Note - Detailed Date of Procedure 10/30/25 Pre-op Diagnosis Acute cholecystitis Post-op Diagnosis Same Procedure Performed Laparoscopic cholecystectomy Surgeon Cathy Michael MD Anesthesia General Indications 40-year-old female presenting to the emergency department with acute cholecystitis Findings acute cholecystitis Description of Procedure The patient was taken to the operating room placed in the supine position. After adequate induction of general anesthesia, the patient was prepped and draped in normal sterile fashion. A time-out was then performed to verify the patient's identity as well as the procedure being performed. I then made a 5 mm incision in the infraumbilical region. Through this, a Veress needle was placed into the peritoneal cavity and CO2 gas was then insufflated. After adequate pneumoperitoneum was achieved, the Veress needle was removed and a 5 mm optiview trocar was placed through this incision under direct visualization. I then placed the laparoscope through this trocar site and under direct visualization placed a further 12 mm subxiphoid port as well as 2 additional 5 mm ports in the right upper abdomen. The gallbladder was then identified and was noted to be inflamed, distended. I was able to place a grasper at the dome of the gallbladder and this was retracted anterior and cephalad up over the liver. A 2nd retractor was then placed at the infundibulum and retracted laterally, this allowed visualization of the triangle of [place]. I then was able to visualize the cystic duct in its entirety from its proximal insertion into the gallbladder , to its distal junction with the common hepatic/common bile duct junction. At this point, I carefully skeletonized the proximal cystic duct with the [place] dissector. I then clipped and transected the proximal cystic duct. Next I visualized the cystic artery. Again the artery was skeletonized, clipped, and transected. I then used the Bovie cautery to take down the peritoneal attachments of the gallbladder off the liver bed. This was somewhat difficult given the amount of inflammation in the posterior space. Once the gallbladder specimen was completely detached, an endo-pouch was placed through the 12 mm port site. I then placed the gallbladder specimen into the Endo pouch and removed the endo-pouch from the 12 mm port site. The specimen will now be sent to pathology for further review. I then copiously irrigated the right upper quadrant. Some mild oozing was noted in the liver bed and this was controlled with the bovie cautery. Hemostasis was noted in the liver bed, the clips were noted to be in good position on both the cystic duct stump and the cystic artery stump. No other pathology was noted in the right upper quadrant. I then moved the laparoscope to the subxiphoid port. No iatrogenic injury or other pathology was noted in the lower abdomen. I then closed the 12 mm trocar site under direct visualization using the [place] cone and 0 Vicryl suture. At this point, the abdomen was desufflated and all ports removed. All port sites were then closed with 4.O Monocryl subcuticular sutures. Dermabond was placed on each incision. The patient tolerated the procedure well, was extubated in the operating room postoperative and will be transferred to the recovery room in stable condition Estimated Blood Loss 10 Drains No Packing No Pathology Yes Complications No immediate complications Condition Stable Disposition PACU [facility] Billing Surgery - Charge Forward: Surgery Billing
[2025-10-30 10:37] VITALS: BP 115/67; PULSE 94; RESP 19; TEMP 36.7; O2SAT 99
[2025-10-30] MEDS: LACTATED RINGERS 1,000 ML 30 ML IV CONT ×2 (10:37→11:04)
[2025-10-30 10:50] VITALS: BP 119/74; PULSE 73; RESP 12; O2SAT 100
[2025-10-30] MEDS: fentaNYL CITRATE INJ (*CRX) 100 MCG/2 ML VIAL 25 MCG IV PUSH ×6 (10:58→11:27)
[2025-10-30 11:05] VITALS: BP 117/61; PULSE 82; RESP 12; O2SAT 97
[2025-10-30 11:20] VITALS: BP 122/75; PULSE 76; RESP 14; O2SAT 96
[2025-10-30] MEDS: HYDROcodone/acetaminophen (*CRX) 5-325 MG TABLET 1 TAB PO (12:17)
[2025-10-30 14:26] VITALS: PULSE 85; O2SAT 96
--- NOTE | 2025-10-30 14:44 | PM.DS ---
DS: Admitting Diagnosis Discharge Date 10/30/2025 Admitting Diagnosis acute cholecystitis transaminitis dehydration DS: Discharge Diagnosis Discharge Diagnosis (1) Acute cholecystitis: Code(s): K81.0 - Acute cholecystitis Status: Acute (2) Transaminitis: Code(s): R74.01 - Elevation of levels of liver transaminase levels Status: Acute (3) Dehydration: Code(s): E86.0 - Dehydration Status: Acute DS: Summary Hospital Course Reason for hospitalization: acute cholecystitis transaminitis dehydration Hospital Course: 40-year-old female with a history of hyperlipidemia, fibromyalgia, and tobacco use who presented to the hospital with acute onset of sharp, stabbing epigastric pain radiating to the back between the shoulder blades, associated with mild nausea but no vomiting. She reported a similar episode the previous night after eating, which resolved spontaneously. On arrival, she was hypertensive and tachycardic, with laboratory studies notable for leukocytosis (WBC 17.6), mild transaminitis (AST 96, ALT 52, ALP 146), and normal total bilirubin. Imaging included a CT abdomen/pelvis showing mild nonspecific gallbladder wall thickening and a right upper quadrant ultrasound confirming cholelithiasis with gallbladder wall thickening, consistent with acute cholecystitis. She was started on IV fluids (lactated Ringer?s), IV antibiotics (piperacillin-tazobactam). The patient was kept NPO. She then developed mild hypotension which resolved with fluid resuscitation. Serial laboratory monitoring showed downtrending liver enzymes and WBC. She was evaluated by general surgery and underwent a laparoscopic cholecystectomy on 10/[address] Michael. Ultimately, the patient?s abdominal pain improved and she remained afebrile and hemodynamically stable throughout her stay. She was able to tolerate a low fat diet and was ambulating the halls prior to discharge. Prior to discharge discussed patient with general surgeon, Dr. Michael who agreed with discharge from a surgical perspective as well and noted that patient did not require antibiotics at time of discharge. Patient states her pain is well controlled on the current oral regimen. She denies any chest pain, palpitations, shortness of breath, nausea/vomiting. She states she feels ready for discharge. Patient was discharged in stable condition with outpatient follow up. Status at Discharge Functional status at discharge: independent ambulation Time Spent with Patient Time attestation: Total time spent providing and/or coordinating discharge services: Time spent: Greater than 30 minutes Exam Narrative: AF HR 85 RR 14 Spo2 96 BP 122/75 General: female in no acute respiratory distress who is nontoxic appearing, sitting up in bed and ambulating halls HEENT: Normocephalic. Atraumatic. Extraocular movement intact. Sclera clear and anicteric. No facial asymmetry. Chest: Lungs are clear to auscultation bilaterally. No wheezes or crackles. CV: Heart was regular rate and rhythm. Abd: Abdomen was soft. Well healing laparoscopic incisions that are clean/dry/intact. Nondistended. Positive bowel sounds. Neuro: Patient is alert and oriented x4. Speech is clear. DS: Data Data Completed and Pending Completed studies during hospitalization: abdomen us abdomen/pelvis ct chest xr Pending studies at discharge: Pending at discharge 10/30/25 10:11 Surgical [PTH] Routine Labs on day of discharge: Labs from last 24 hours 10/30/25 05:27 WBC 13.5 H RBC 4.24 Hgb 12.7 Hct 39.2 MCV 92.5 MCH 30.0 MCHC 32.4 RDW 14.0 Plt Count 388 H MPV 10.7 H Immature Gran % (Auto) Not Reportable Neut % (Auto) Not Reportable Lymph % (Auto) Not Reportable [place] % (Auto) Not Reportable Eos % (Auto) Not Reportable Baso % (Auto) Not Reportable Lymph # (Auto) Not Reportable [place] # (Auto) Not Reportable Eos # (Auto) Not Reportable Baso # (Auto) Not Reportable Abs Immat Gran (auto) Not Reportable Absolute Neuts (auto) Not Reportable Absolute Nucleated RBC Not Reportable Total Counted 100 Neutrophils % (Manual) 31 L Band Neutrophils % 0 Lymphocytes % (Manual) 56 H Monocytes % (Manual) 2 L Eosinophils % (Manual) 11 H Basophils % (Manual) 0 Nucleated RBC % Not Reportable Abs Neuts (Manual) 4.18 Abs Lymphs (Manual) 7.56 H Abs Monocytes (Manual) 0.27 Absolute Eos (Manual) 1.48 H Abs Basophils (Manual) 0.00 Platelet Estimate Adequate Schistocytes None seen Sodium 136 L Potassium 3.8 Chloride 108 H Carbon Dioxide 25 Anion Gap 3 L BUN 6 L D Creatinine 0.67 L Estim Creat Clear Calc 111 Estimated GFR > 60 Glucose 84 Calcium 8.3 L Total Bilirubin 0.5 AST 47 H ALT 91 H Alkaline Phosphatase 129 H Total Protein 5.9 L Albumin 3.3 L Discharge Plan Discharge Attending physician on discharge: Nathan Abreu Oca Consulting providers: Elisabeth Arce; Cathy Michael Discharging Clinician: Elisabeth Arce Anticipated Discharge Date/Time: 10/30/25 14:47 Patient Disposition: Home Activity: may shower and as tolerated Diet: as tolerated and low fat Wound Care Instructions: incision open to air Discharge Instructions: DISCHARGE INSTRUCTION SHEET FOR HERNIA, GALLBLADDER AND APPENDIX SURGERIES DR. MICHAEL PATIENT TO TAKE HOME 1. May shower in 24 hours, no soaking in bath x 2weeks. 2. Call office for: Wound increasingly painful or bleeding Vomiting Fever of greater than 101 degrees 3. If no bowel movement for three days, take 1 oz. (30 ml) Milk of Magnesia or MiraLax 17g 1 to 2 times daily. 4. No heavy lifting > 10-15 pounds x 6 weeks for hernia repairs and 2 weeks for laparoscopic cholecystectomy or appendectomy. 5. No driving for 3 days or while taking narcotic pain medications. 6. Ice to surgical site for 48 hours (30 min on, then 30 min off). 7. Up walking 10-30 minutes three times per day. 8. Resume previous home medications. 9. Follow-up 10-14 days in office for wound check or as previously scheduled. ([phone]) 10. Oral pain medications prescription to be sent to pharmacy. Take Tylenol 500mg every 6 hours and Ibuprofen 600mg every 6 hours for the first 2 days, then as needed. [place] 5-325 mg every 6 hours as needed for breakthrough pain Do not drive or operate heavy machinery on this medication Attached is information on this medication 11. NUTRITION: Start out by drinking fluids and increase your diet as tolerated. If you experience nausea, try dry toast, crackers, and 7-UP. If nausea or vomiting persists, contact your surgeon?s office. 12. Gallbladders-Low Fat Diet for 2 weeks (send care note of low fat diet) 13. Inguinal Hernias-wear scrotal support for 48 hours 14. Abdominal Hernias-if sent home with abdominal binder, wear for the first 2 weeks (may remove to shower or at night to sleep). Take caution while standing, rising, or moving Change positions slowly taking a break between each position change If you standing feel dizzy sit back down and take a break Encouraged to continue with yearly vaccinations Return to the emergency department if he developed sudden shortness of breath, chest pain, nausea, vomiting, upset stomach or intractable diarrhea Return to the emergency department if you develop fever greater than 100.4 Follow-up with the primary care physician within 1-2 weeks Thank you for [facility] for your healthcare needs Revised 12/2020 Patient Instructions: Laparoscopic Cholecystectomy, Hydrocodone/Acetaminophen (By mouth), Low Fat Diet (DC) Patient Language: Lao Stand Alone Forms: General Discharge Information Follow-up/Referrals: Cathy Michael MD [Physician, General Surgery] - 2 Weeks Joe Chin MD [Primary Care Provider, Family Practice] - 1 Week Discharge Medications: New hydrocodone-acetaminophen 5-325 mg tablet 1 tablet PO Q6H PRN (Reason: pain) Qty: 20 0RF Continued Nexplanon 68 mg Implant 1 implant SUBDERMAL ONCE Nurtec ODT 75 mg tablet,disintegrating 75 mg PO ONCE PRN (Reason: migraine headache) Qty: 8 0RF Rx Instructions: as a single dose. May repeat the dose 1 time after 24 hours if symptoms persist Zepbound 7.5 mg/0.5 mL solution 7.5 mg subcut WEEKLY Qty: 2 3RF Patient Comments: Patient states she takes on Mondays Rx Instructions: [facility] [id number] varenicline tartrate 0.5 mg (11)- 1 mg (42) tablets,dose pack See Rx Instructions PO PER PKG DIR Qty: 53 0RF Rx Instructions: PO PER PKG DIR cholecalciferol (vitamin D3) 1,250 mcg (50,000 unit) capsule 1,250 mcg PO WEEKLY Qty: 8 0RF Patient Comments: Patient states she takes on Date of admission: 10/29/25 08:33 Primary Care Provider: Joe Chin Admitting Provider: Yonas Rodriguez Attending physician on admission: Ynoas Rodriguez Condition: Stable Hospitalist MIPS Heart Failure (Exclusion) Patient has history of Heart Transplant or Left Ventricular Assistive Device?: No IF YES, STOP HERE Heart Failure (Qualifier) Patient has current or prior documentation of LVEF less than or equal to 40%, or mod/servere depressed LVSF?: No IF NO, STOP HERE
[2025-10-30] MEDS: INFLUENZA VACCINE 45 MCG/0.5 ML SYRINGE IM (16:03)
== END 2025-10-30 16:07 | disposition home or self-care (01) ==
LOC: ANHED 08:07 → ANH2MED 15:29
PROVIDERS: Nurse Practitioner Adult Health; Surgery; Admitting Provider Internal Medicine; Emergency Provider Student in an Organized Health Care Education/Training Program; PCP Family Medicine; Visit Provider Student in an Organized Health Care Education/Training Program
PROC: 0FT44ZZ Resection of Gallbladder, Percutaneous Endoscopic Approach (ICD-10-PCS; CPT 47562; principal; 2025-10-30 09:00)
DX: K80.00 Calculus of gallbladder with acute cholecystitis without obstruction (principal); E86.0 Dehydration; R74.01 Elevation of levels of liver transaminase levels; E78.5 Hyperlipidemia, unspecified; F17.210 Nicotine dependence, cigarettes, uncomplicated; Z23 Encounter for immunization
CPT/HCPCS: 47562; 36415; 71046; 74177; 76705; 80053; 81025; 83690; 84484; 85025; 85610; 85730; 88304; 90471; 90656; 93005; 96361; 96365; 96374; 96375; 96376; 99285; A9270; G0008; G0378; J1171; J1885; J2003; J2250; J2270; J2405; J2543; J2704; J3010; J7030; J7120; Q9967